=== PATIENT | male | born 1980 ===

== ENCOUNTER 2017-06-27 17:07 | Inpatient (IN) | payer OTHER ==
[2017-06-27] MEDS ORDERED: Sodium Chloride 0.9% 1,000 ML IV ONE (17:58)
--- NOTE | 2017-06-27 17:58 | C.PDOC ---
History Of Present Illness 36 y/o male presents to ED with complaints of fever intermittently for 3 weeks with associated rigors and cough. Patient also complaints of new onset upper back pain for 3 weeks. Patient reports he lefts a lot at work and states pain is worse during rigors worse with movement. Patient denies trauma, weakness, numbness, chest pain, shortness of breath, dyspnea on exertion, recent travel, sick contacts or any other complaints at this time. FEVER X 3 WEEKS. INTERMIT, +RIGORS +COUGH. NO CP, SOB, FLORES. DENIES TRAVEL, SICK CONTACTS. ALSO W NEW ONSET LOWER AND UPPER BACK PAIN X 3 WEEKS. PS LIFTS ALOT AT WORK. PAIN WORSE DURING RIGORS. WORSE W MOVEMENT. NO TRAUMA, ASSOC WEAK/NUMB EXAM NAD NONTOXIC HEENT NEG LUNGS CTA B/L NO W/R/R BACK NEG REMAINDER NEG Time Seen by Provider: 06/27/17 17:46 Chief Complaint (Nursing): Flu-like Symptoms History Per: Patient History/Exam Limitations: no limitations Onset/Duration Of Symptoms: Days Current Symptoms Are (Timing): Still Present Associated Symptoms: Fever, Cough Past Medical History Reviewed: Historical Data, Nursing Documentation, Vital Signs Vital Signs: Last Vital Signs Temp 102.8 F H 06/27/17 17:17 Pulse 117 H 06/27/17 17:17 Resp 18 06/27/17 17:17 BP 125/84 06/27/17 17:17 Pulse Ox 99 06/27/17 18:10 - Medical History PMH: No Chronic Diseases Surgical History: No Surg Hx Family History: States: No Known Family Hx - Social History Hx Alcohol Use: No Hx Substance Use: No - Immunization History Hx Tetanus Toxoid Vaccination: No Hx Influenza Vaccination: No Hx Pneumococcal Vaccination: No Review Of Systems Constitutional: Positive for: Fever. Negative for: Chills Respiratory: Positive for: Cough. Negative for: Shortness of Breath Gastrointestinal: Negative for: Nausea, Vomiting Musculoskeletal: Positive for: Back Pain Skin: Negative for: Rash Physical Exam - Physical Exam Appears: Non-toxic, No Acute Distress Skin: Warm, Dry, No Rash Head: Atraumatic, Normacephalic Eye(s): bilateral: Normal Inspection, PERRL, EOMI Ear(s): Bilateral: Normal Oral Mucosa: Moist Throat: Normal, No Erythema, No Exudate Neck: Supple Cardiovascular: Rhythm Regular Respiratory: Normal Breath Sounds, No Rales, No Rhonchi, No Wheezing, Other ( CTA bilateral) Gastrointestinal/Abdominal: Soft, No Tenderness, No Guarding, No Rebound Back: No CVA Tenderness, No Muscle Spasm, No Paraspinal Tenderness Extremity: Normal ROM, Capillary Refill (<2 seconds) Neurological/Psych: Oriented x3, Normal Motor, Normal Sensation ED Course And Treatment O2 Sat by Pulse Oximetry: 99 (RA) Pulse Ox Interpretation: Normal - Other Rad CXR X-Ray: Interpreted by Me, Viewed By Me Interpretation: Opacification in left upper lobe, No prior for comparison Disposition - Disposition Disposition Time: 19:00 Condition: STABLE Forms: [facility] (Algerian) - Clinical Impression Clinical Impression: Fever - Scribe Statement The provider has reviewed the documentation as recorded by the Scribfelice Thomas All medical record entries made by the Scribe were at my direction and personally dictated by me. I have reviewed the chart and agree that the record accurately reflects my personal performance of the history, physical exam, medical decision making, and the department course for this patient. I have also personally directed, reviewed, and agree with the discharge instructions and disposition. Physician Patient Turnover Patient Signed Over To: Juan Nunes Handoff Comments: MAXIMO CT, DISPO
[2017-06-27] MEDS ORDERED: cefTRIAXone IV 1 gm in Dextros 50 ML IV STA (18:16)
[2017-06-27] MEDS ORDERED: Azithromycin 500 MG in Sodium Chloride 0.9% 250 ML IV STA (18:16)
[2017-06-27 18:53] LABS: VENOUS BLOOD GAS BASE EXCESS 2.2 mmol/L (0.0-2.0); VENOUS BLOOD GAS PCO2 46 mmHg (40-60); VENOUS BLOOD PH 7.39 (7.32-7.43)
[2017-06-27 18:54] LABS: BASO # 0.1 K/uL (0.0-0.2); EOS # 0.3 K/uL (0.0-0.7); EOS % 2.9 % (0.0-4.0); HEMATOCRIT 44.8 % (35.0-51.0); LYMPH % 17.4 % (20.0-40.0); MEAN CORPUSCULAR HEMOGLOBIN 30.3 pg (27.0-31.0); MEAN CORPUSCULAR HGB CONC 33.3 g/dL (33.0-37.0); MEAN PLATELET VOLUME 7.2 fL (7.2-11.7); MONO # 0.7 K/uL (0.0-0.8); MONO % 6.3 % (0.0-10.0); RED CELL DISTRIBUTION WIDTH 12.9 % (11.5-14.5); WHITE BLOOD COUNT 11.3 K/uL (4.8-10.8)
[2017-06-27 19:06] LABS: RBC URINE 10 /hpf (0-3); URINE BILIRUBIN NEGATIVE (NEGATIVE); URINE BLOOD 2+ (NEGATIVE); URINE COLOR Yellow (YELLOW); URINE GLUCOSE (UA) NORMAL (Normal); URINE KETONE NEGATIVE (NEGATIVE); URINE LEUKOCYTE ESTERASE NEG Leu/uL (Negative); URINE PROTEIN NEGATIVE (NEGATIVE); URINE UROBILINOGEN NORMAL mg/dL (0.2-1.0); WBC URINE 1 /hpf (0-5)
[2017-06-27] MEDS ORDERED: cefTRIAXone IV 1 gm in Dextros 50 ML IVPB ONE (19:07)
[2017-06-27 19:09] LABS: ALKALINE PHOSPHATASE 114 U/L (38-126); ALT/SGPT 57 U/L (21-72); AST/SGOT 26 U/L (17-59); BILIRUBIN,TOTAL 0.4 mg/dL (0.2-1.3); BLOOD UREA NITROGEN 12 mg/dL (9-20); CALCIUM 8.6 mg/dl (8.6-10.4); CARBON DIOXIDE 28 mmol/L (22-30); CHLORIDE 99 mmol/L (98-107); GFR AFRICAN-AMERICAN > 60; GLUCOSE,RANDOM 91 mg/dL (75-110); POTASSIUM 3.7 mmol/L (3.6-5.2); SODIUM 137 mmol/L (132-148); TOTAL PROTEIN 8.3 g/dL (6.3-8.3)
[2017-06-27 19:12] LABS: ALB/GLOB RATIO 0.9 (1.0-2.1)
[2017-06-27] MEDS ORDERED: Iodixanol 320 MG/ML 100 ML BOTTLE IV ONE (19:25)
[2017-06-27] MEDS ORDERED: metroNIDAZOLE IV 500 mg/100 ml 500 MG/100 ML BAG IVPB STA (20:29)
--- NOTE | 2017-06-27 20:37 | CP.PCM.HP ---
<HareshBriana EstuardoJaren - Last Filed: 06/27/17 23:14> History of Present Illness - History of Present Illness History of Present Illness: CC: "fever and back pain" HPI: 36 year old male with no past medical history presents to the ED with fever and thoracic back pain. Patient states the fever and pain comes and goes for the past 3 weeks. He has been taking different medications his friends give him from the pharmacy and it helps with the fever and pain but then it returns. He states the pain is aching and he also has body aches and fever for the past 3 weeks. He states the pain when it comes is at an 8/10. He also has been nauseated recently with what feels like a bad taste in his mouth. He also states he has been coughing a dry cough but this past week it has had some blood in his cough. He has also recently had decreased appetite as he is going through a divorce and has lost about 20 lbs in the past 4 months. He denies recent travel, sick contacts, diarrhea, constipation, vomiting or dysuria. States he has not left the country in many years but he does work with many different people from different parts of the world. Medical History: Denies Surgical History: Denies Medications: Denies Allergies: NKDA Family History: Denies Social History: Recent divorce within the last 4 months; works delivering furniture; denies any recent travel or sick contacts but states he works with people from all over the world/country. Denies smoking or illicit drug use. States he drink a beer once a week. Present on Admission - Present on Admission Any Indicators Present on Admission: No Review of Systems - Constitutional Constitutional: Chills, Fever, Weight Loss. absent: Headache - EENT Eyes: absent: Blurred Vision, Change in Vision Ears: absent: Dizziness Nose/Mouth/Throat: absent: Sore Throat - Cardiovascular Cardiovascular: absent: Chest Pain, Dyspnea, Palpitations - Respiratory Respiratory: Cough, Change in Mucous Color (blood ). absent: Dyspnea - Gastrointestinal Gastrointestinal: Nausea. absent: Constipation, Diarrhea, Vomiting - Genitourinary Genitourinary: absent: Dysuria, Hematuria - Musculoskeletal Musculoskeletal: Back Pain, Muscle Weakness. absent: Numbness, Tingling - Neurological Neurological: absent: Dizziness, Headaches, Tingling, Weakness - Endocrine Endocrine: Fatigue. absent: Palpitations Past Patient History - Infectious Disease Hx of Infectious Diseases: None - Past Social History Smoking Status: Never Smoked - PSYCHIATRIC Hx Substance Use: No - SURGICAL HISTORY Hx Surgeries: No - ANESTHESIA Hx Anesthesia: No Meds Allergies/Adverse Reactions: Allergies Allergy/AdvReac Type Severity Reaction Status Date / Time No Known Allergies Allergy Verified 06/27/17 17:21 Physical Exam - Constitutional Appears: No Acute Distress - Head Exam Head Exam: ATRAUMATIC, NORMAL INSPECTION - Eye Exam Eye Exam: EOMI, Normal appearance - ENT Exam ENT Exam: Mucous Membranes Moist - Respiratory Exam Respiratory Exam: Decreased Breath Sounds (right lower lung), NORMAL BREATHING PATTERN. absent: Rales, Rhonchi, Wheezes, Stridor - Cardiovascular Exam Cardiovascular Exam: Tachycardia, REGULAR RHYTHM, +S1, +S2 - GI/Abdominal Exam GI & Abdominal Exam: Normal Bowel Sounds, Soft. absent: Tenderness - Extremities Exam Extremities exam: Positive for: normal inspection. Negative for: pedal edema, tenderness - Back Exam Back exam: rash noted (light macular papular rash). absent: paraspinal tenderness, tenderness, vertebral tenderness - Neurological Exam Neurological exam: Alert, CN II-XII Intact, Oriented x3 - Skin Skin Exam: Dry, Intact, Rash, Warm Results - Vital Signs Recent Vital Signs: Last Vital Signs Temp 102.8 F H 06/27/17 17:17 Pulse 117 H 06/27/17 17:17 Resp 18 06/27/17 17:17 BP 125/84 06/27/17 17:17 Pulse Ox 99 06/27/17 18:52 - Labs Result Diagrams: 06/27/17 18:51 06/27/17 18:51 Labs: Laboratory Results - last 24 hr 06/27/17 06/27/17 06/27/17 18:45 18:50 18:51 WBC RBC Hgb Hct MCV MCH MCHC RDW Plt Count MPV Neut % (Auto) Lymph % (Auto) Gallia % (Auto) Eos % (Auto) Baso % (Auto) Neut # Lymph # Gallia # Eos # Baso # pO2 30 VBG pH 7.39 VBG pCO2 46 VBG HCO3 25.5 VBG Total CO2 29.2 H VBG O2 Sat (Calc) 69.2 H VBG Base Excess 2.2 H VBG Potassium 3.7 Sodium 138.0 137 Chloride 104.0 99 Glucose 102 Lactate 1.3 Potassium 3.7 Carbon Dioxide 28 Anion Gap 14 BUN 12 Creatinine 0.9 Est GFR ( Amer) > 60 Est GFR (Non-Af Amer) > 60 Random Glucose 91 Calcium 8.6 Total Bilirubin 0.4 AST 26 ALT 57 Alkaline Phosphatase 114 Total Protein 8.3 Albumin 4.0 Globulin 4.3 H Albumin/Globulin Ratio 0.9 L Venous Blood Potassium 3.7 Urine Color Urine Clarity Urine pH Ur Specific Newman Urine Protein Urine Glucose (UA) Urine Ketones Urine Blood Urine Nitrate Urine Bilirubin Urine Urobilinogen Ur Leukocyte Esterase Urine WBC (Auto) Urine RBC (Auto) Influenza Typ A,B (EIA) Negative for flu a/b 06/27/17 06/27/17 18:51 18:51 WBC 11.3 H RBC 4.93 Hgb 14.9 Hct 44.8 MCV 91.0 MCH 30.3 MCHC 33.3 RDW 12.9 Plt Count 487 H MPV 7.2 Neut % (Auto) 72.4 Lymph % (Auto) 17.4 L Gallia % (Auto) 6.3 Eos % (Auto) 2.9 Baso % (Auto) 1.0 Neut # 8.1 H Lymph # 2.0 Gallia # 0.7 Eos # 0.3 Baso # 0.1 pO2 VBG pH VBG pCO2 VBG HCO3 VBG Total CO2 VBG O2 Sat (Calc) VBG Base Excess VBG Potassium Sodium Chloride Glucose Lactate Potassium Carbon Dioxide Anion Gap BUN Creatinine Est GFR ( Amer) Est GFR (Non-Af Amer) Random Glucose Calcium Total Bilirubin AST ALT Alkaline Phosphatase Total Protein Albumin Globulin Albumin/Globulin Ratio Venous Blood Potassium Urine Color Yellow Urine Clarity Clear Urine pH 5.0 Ur Specific Newman 1.025 Urine Protein Negative Urine Glucose (UA) Normal Urine Ketones Negative Urine Blood 2+ H Urine Nitrate Negative Urine Bilirubin Negative Urine Urobilinogen Normal Ur Leukocyte Esterase Neg Urine WBC (Auto) 1 Urine RBC (Auto) 10 H Influenza Typ A,B (EIA) Assessment & Plan - Assessment and Plan (Free Text) Assessment: 1.) Fever and Thoracic Back Pain - possibly secondary to TB vs. Pneumonia vs. Lung abscess - ID Consult: Dr. Haque --> help appreciated - f/u Chest x-ray - f/u Chest CT Spoke with Dr. Haque and told not to start TB medications yet until receive all blood work, lung readings, and sputum cultures - Vancomycin 1g q24h - Azythromycin 500mg q24h - Zosyn 3.375g q6h - f/u sputum culture, acid fast, urine culture, Legionella, mycoplasm 2.) Prophylaxis - Heparin SC - Pepcid 20mg PO daily - SCDs - Isolation Case discussed with Dr. Malathi Hutson PGY-1 <Paco Servin - Last Filed: 06/28/17 06:11> Results - Vital Signs Recent Vital Signs: Last Vital Signs Temp 99 F 06/28/17 04:00 Pulse 79 06/28/17 04:00 Resp 18 06/28/17 04:00 BP 127/79 06/28/17 04:00 Pulse Ox 97 06/28/17 04:00 - Labs Result Diagrams: 06/27/17 18:51 06/27/17 18:51 Labs: Laboratory Results - last 24 hr 06/27/17 06/27/17 06/27/17 18:45 18:50 18:51 WBC RBC Hgb Hct MCV MCH MCHC RDW Plt Count MPV Neut % (Auto) Lymph % (Auto) Gallia % (Auto) Eos % (Auto) Baso % (Auto) Neut # Lymph # Gallia # Eos # Baso # pO2 30 VBG pH 7.39 VBG pCO2 46 VBG HCO3 25.5 VBG Total CO2 29.2 H VBG O2 Sat (Calc) 69.2 H VBG Base Excess 2.2 H VBG Potassium 3.7 Sodium 138.0 137 Chloride 104.0 99 Glucose 102 Lactate 1.3 Potassium 3.7 Carbon Dioxide 28 Anion Gap 14 BUN 12 Creatinine 0.9 Est GFR ( Amer) > 60 Est GFR (Non-Af Amer) > 60 Random Glucose 91 Calcium 8.6 Total Bilirubin 0.4 AST 26 ALT 57 Alkaline Phosphatase 114 Total Protein 8.3 Albumin 4.0 Globulin 4.3 H Albumin/Globulin Ratio 0.9 L Procalcitonin Venous Blood Potassium 3.7 Urine Color Urine Clarity Urine pH Ur Specific Newman Urine Protein Urine Glucose (UA) Urine Ketones Urine Blood Urine Nitrate Urine Bilirubin Urine Urobilinogen Ur Leukocyte Esterase Urine WBC (Auto) Urine RBC (Auto) HIV 1&2 Antibody Screen Influenza Typ A,B (EIA) Negative for flu a/b 06/27/17 06/27/17 06/27/17 18:51 18:51 21:23 WBC 11.3 H RBC 4.93 Hgb 14.9 Hct 44.8 MCV 91.0 MCH 30.3 MCHC 33.3 RDW 12.9 Plt Count 487 H MPV 7.2 Neut % (Auto) 72.4 Lymph % (Auto) 17.4 L Gallia % (Auto) 6.3 Eos % (Auto) 2.9 Baso % (Auto) 1.0 Neut # 8.1 H Lymph # 2.0 Gallia # 0.7 Eos # 0.3 Baso # 0.1 pO2 VBG pH VBG pCO2 VBG HCO3 VBG Total CO2 VBG O2 Sat (Calc) VBG Base Excess VBG Potassium Sodium Chloride Glucose Lactate Potassium Carbon Dioxide Anion Gap BUN Creatinine Est GFR ( Amer) Est GFR (Non-Af Amer) Random Glucose Calcium Total Bilirubin AST ALT Alkaline Phosphatase Total Protein Albumin Globulin Albumin/Globulin Ratio Procalcitonin 0.08 L Venous Blood Potassium Urine Color Yellow Urine Clarity Clear Urine pH 5.0 Ur Specific Newman 1.025 Urine Protein Negative Urine Glucose (UA) Normal Urine Ketones Negative Urine Blood 2+ H Urine Nitrate Negative Urine Bilirubin Negative Urine Urobilinogen Normal Ur Leukocyte Esterase Neg Urine WBC (Auto) 1 Urine RBC (Auto) 10 H HIV 1&2 Antibody Screen Influenza Typ A,B (EIA) 06/27/17 21:49 WBC RBC Hgb Hct MCV MCH MCHC RDW Plt Count MPV Neut % (Auto) Lymph % (Auto) Gallia % (Auto) Eos % (Auto) Baso % (Auto) Neut # Lymph # Gallia # Eos # Baso # pO2 VBG pH VBG pCO2 VBG HCO3 VBG Total CO2 VBG O2 Sat (Calc) VBG Base Excess VBG Potassium Sodium Chloride Glucose Lactate Potassium Carbon Dioxide Anion Gap BUN Creatinine Est GFR ( Amer) Est GFR (Non-Af Amer) Random Glucose Calcium Total Bilirubin AST ALT Alkaline Phosphatase Total Protein Albumin Globulin Albumin/Globulin Ratio Procalcitonin Venous Blood Potassium Urine Color Urine Clarity Urine pH Ur Specific Newman Urine Protein Urine Glucose (UA) Urine Ketones Urine Blood Urine Nitrate Urine Bilirubin Urine Urobilinogen Ur Leukocyte Esterase Urine WBC (Auto) Urine RBC (Auto) HIV 1&2 Antibody Screen Negative Influenza Typ A,B (EIA) Assessment & Plan - Date & Time Date: 06/28/17 (I have seen and examined the patient. I agree with the findings and plan of care as documented by Dr. Hutson. Patient with lung abscess and pneumonia. Positive for SIRS. Check procalcitonin. Lactate negative. Check sputum and blood cultures. Consult to ID. On Vanco, Azithro, and Zosyn. Monitor for acute changes.) Time: 06:10 Attending/Attestation - Attestation I have personally seen and examined this patient.: Yes I have fully participated in the care of the patient.: Yes I have reviewed all pertinent clinical information: Yes
[2017-06-27] MEDS ORDERED: metroNIDAZOLE IV 500 mg/100 ml 500 MG/100 ML BAG ONE (21:15)
[2017-06-27] MEDS: Vancomycin 1 gm/NS 200 ml 1 GM/200 ML BAG IVPB SCH (23:39)
[2017-06-28] MEDS: Piperacill/Tazo 3.375gm in Dex 3.375 GM/50 ML BAG IVPB SCH ×4 (01:14→19:27)
[2017-06-28 08:20] LABS: BASO # 0.1 K/uL (0.0-0.2); BASO % 0.7 % (0.0-2.0); EOS # 0.2 K/uL (0.0-0.7); EOS % 2.2 % (0.0-4.0); HEMATOCRIT 42.3 % (35.0-51.0); LYMPH # 1.3 K/uL (1.0-4.3); LYMPH % 11.4 % (20.0-40.0); MEAN CELL VOLUME 90.7 fL (80.0-94.0); MEAN CORPUSCULAR HEMOGLOBIN 31.1 pg (27.0-31.0); MEAN CORPUSCULAR HGB CONC 34.3 g/dL (33.0-37.0); MEAN PLATELET VOLUME 7.3 fL (7.2-11.7); MONO # 0.8 K/uL (0.0-0.8); MONO % 7.3 % (0.0-10.0)
[2017-06-28 08:47] LABS: ALB/GLOB RATIO 1.2 (1.0-2.1); ALKALINE PHOSPHATASE 107 U/L (38-126); ALT/SGPT 45 U/L (21-72); AST/SGOT 30 U/L (17-59); BILIRUBIN,TOTAL 0.7 mg/dL (0.2-1.3); BLOOD UREA NITROGEN 10 mg/dL (9-20); CALCIUM 8.5 mg/dl (8.6-10.4); CARBON DIOXIDE 25 mmol/L (22-30); CHLORIDE 99 mmol/L (98-107); GFR AFRICAN-AMERICAN > 60; GLUCOSE,RANDOM 87 mg/dL (75-110); MAGNESIUM 1.9 mg/dL (1.6-2.3); PHOSPHOROUS 2.8 mg/dL (2.5-4.5); POTASSIUM 3.8 mmol/L (3.6-5.2); SODIUM 134 mmol/L (132-148); TOTAL PROTEIN 6.7 g/dL (6.3-8.3)
--- NOTE | 2017-06-28 13:14 | RAD ---
HISTORY: SOB COMPARISON: No prior. TECHNIQUE: Chest PA and lateral FINDINGS: LUNGS: Left upper lobe infiltrate consistent with pneumonia. Minor bibasilar atelectasis. PLEURA: No significant pleural effusion identified. No pneumothorax apparent. CARDIOVASCULAR: Normal. OSSEOUS STRUCTURES: No significant abnormalities. VISUALIZED UPPER ABDOMEN: Normal. OTHER FINDINGS: None. IMPRESSION: Left upper lobe infiltrate consistent with pneumonia. . Minor bibasilar atelectasis
--- NOTE | 2017-06-28 17:42 | CT ---
PROCEDURE: CT Chest with contrast HISTORY: fever abn cxr COMPARISON: Comparison made with chest x-ray 06/27/2017. TECHNIQUE: Contiguous axial images were obtained through the chest with intravenous contrast enhancement. Sagittal and coronal reconstructions were performed. IV contrast: 100 cc of Visipaque 320 contrast material. Radiation dose (DLP): 562.22 mGy-cm. This CT exam was performed using one or more of the following dose reduction techniques: Automated exposure control, adjustment of the mA and/or kV according to patient size, and/or use of iterative reconstruction technique. FINDINGS: LUNGS: Current study reveals masslike area of consolidation left upper lobe. With a somewhat central elliptical shaped area of low-attenuation (measuring approximately 2.2 x 1 point of 5 5 cm) and a bubble of air consistent with abscess. Follow-up CT scan following treatment recommended to assess resolution and exclude an underlying mass with central necrosis. . MEDIASTINUM: Unremarkable thoracic aorta. No aneurysm or dissection. Heart is mildly enlarged Main pulmonary artery unremarkable No vascular congestion. No significant lymphadenopathy PLEURA: No pleural fluid. No pneumothorax. BONES: Mild degenerative spondylosis of the thoracic spine. UPPER ABDOMEN: Grossly unremarkable. OTHER FINDINGS: None. IMPRESSION: Masslike consolidation left upper lobe with the small central a elliptical shaped area of low attenuation and at tiny bubble of air consistent with pneumonia and at central abscess formation. . Follow-up CT scan following treatment to assess resolution and exclude underlying mass with central necrosis. Preliminary report provided by overnight radiology service. Go go
--- NOTE | 2017-06-28 17:44 | CP.PCM.PN ---
<Lucía Washington - Last Filed: 06/28/17 20:34> Subjective - Date & Time of Evaluation Date of Evaluation: 06/28/17 Time of Evaluation: 09:30 - Subjective Subjective: Medicine Progress Note for Dr. Acevedo Patient was seen and examined at bedside in no acute distress. Patient reports feeling okay but still has a cough. He states the cough sometimes produces a white phlegm and a strange taste. Patient reports that then he feels feverish, his back becomes really hot and his legs get tense. During the exam, patient denies having these symptoms. Patient denies having chest pain, abdominal pain, shortness of breath, nausea, vomiting, and headaches. Objective - Vital Signs/Intake and Output Vital Signs (last 24 hours): Temp Pulse Resp BP Pulse Ox 100.4 F H 74 20 113/71 96 06/28/17 16:29 06/28/17 16:29 06/28/17 16:29 06/28/17 16:29 06/28/17 16:29 Intake and Output: 06/28/17 06/28/17 06:59 18:59 Intake Total 120 500 Balance 120 500 - Medications Medications: Current Medications Famotidine (Pepcid) 20 mg PO DAILY [facility] Last Admin: 06/28/17 09:39 Dose: 20 mg Heparin Sodium (Porcine) (Heparin) 5,000 units SC Q8 [facility] Last Admin: 06/28/17 13:13 Dose: 5,000 units Piperacillin Sod/Tazobactam Sod (Zosyn 3.375 Gm Iv Premix) 3.375 gm in 50 mls @ 100 mls/hr IVPB Q6H [facility] Last Admin: 06/28/17 13:13 Dose: 100 mls/hr Vancomycin/Sodium Chloride (Vancomycin 1 Gm/Ns 200 Ml) 1 gm in 200 mls @ 133.333 mls/hr IVPB Q24H [facility] Stop: 07/02/17 21:31 Last Admin: 06/27/17 23:39 Dose: 133.333 mls/hr Azithromycin 500 mg/ Sodium (Chloride) 250 mls @ 167 mls/hr IVPB Q24H [facility] Saccharomyces Boulardii (Florastor) 250 mg PO BID [facility] - Labs Labs: 06/28/17 07:54 06/28/17 07:54 - Constitutional Appears: No Acute Distress - Head Exam Head Exam: ATRAUMATIC, NORMAL INSPECTION - Eye Exam Eye Exam: EOMI, Normal appearance - ENT Exam ENT Exam: Mucous Membranes Moist - Respiratory Exam Respiratory Exam: Clear to Ausculation Bilateral, Respiratory Distress, NORMAL BREATHING PATTERN. absent: Rales, Rhonchi, Wheezes - Cardiovascular Exam Cardiovascular Exam: REGULAR RHYTHM, +S1, +S2 - GI/Abdominal Exam GI & Abdominal Exam: Soft, Normal Bowel Sounds. absent: Distended, Firm, Tenderness, Mass - Extremities Exam Extremities Exam: Normal Inspection. absent: Calf Tenderness, Pedal Edema - Neurological Exam Neurological Exam: Alert, Awake, Oriented x3 - Psychiatric Exam Psychiatric exam: Normal Affect, Normal Mood - Skin Skin Exam: Dry, Intact, Normal Color, Warm Assessment and Plan (1) Fever Assessment & Plan: Fever and Thoracic Back Pain * possibly secondary to TB vs. Pneumonia vs. Lung abscess * ID Consult: Dr. Haque --> help appreciated * TB medication on hold until results for blood work and sputum cultures * Chest xray: Left upper lobe infiltrate consistent with pneumonia; Minor bibasilar atelectasis * Chest CT: Masslike consolidation left upper lobe with the small central a elliptical shaped area of low attenuation and at tiny bubble of air consistent with pneumonia and at central abscess formation; Follow-up CT scan following treatment to assess resolution and exclude underlying mass with central necrosis. * Continue antibiotics: Vancomycin 1g q24h, Azythromycin 500mg q24h, Zosyn 3.375g q6h * monitor LFTs * Vanco trough--> order for 06/30: f/u results * Legionella, mycoplasma, influenza: negative * HIV 1/2 Ab: negative * F/u sputum culture, gram stain, acid fast, urine culture Status: Acute (2) Cough Assessment & Plan: * Started tessalon pearls * Chest xray: Left upper lobe infiltrate consistent with pneumonia; Minor bibasilar atelectasis * Chest CT: Masslike consolidation left upper lobe with the small central a elliptical shaped area of low attenuation and at tiny bubble of air consistent with pneumonia and at central abscess formation; Follow-up CT scan following treatment to assess resolution and exclude underlying mass with central necrosis. * f/u sputum culture, gram stain, acid fast, urine culture * Legionella, mycoplasm, Influenza: negative * Continue antibiotics Vancomycin 1g q24h, Azythromycin 500mg q24h, Zosyn 3.375g q6h Status: Acute (3) Prophylactic measure Assessment & Plan: - Heparin SC - Pepcid 20mg PO daily - SCDs - Isolation - Utilization Engineer referral Status: Acute <Elisabeth Acevedo V - Last Filed: 06/28/17 21:56> Objective - Vital Signs/Intake and Output Vital Signs (last 24 hours): Temp Pulse Resp BP Pulse Ox 99 F 98 H 18 112/71 96 06/28/17 19:40 06/28/17 19:35 06/28/17 19:35 06/28/17 19:35 06/28/17 16:29 Intake and Output: 06/28/17 06/29/17 18:59 06:59 Intake Total 950 350 Balance 950 350 - Medications Medications: Current Medications Acetaminophen (Tylenol 325mg Tab) 650 mg PO Q6 PRN PRN Reason: Pain, Mild (1-3) Last Admin: 06/28/17 19:40 Dose: 650 mg Benzonatate (Tessalon Perles) 100 mg PO TID [facility] Last Admin: 06/28/17 18:23 Dose: 100 mg Famotidine (Pepcid) 20 mg PO DAILY [facility] Last Admin: 06/28/17 09:39 Dose: 20 mg Heparin Sodium (Porcine) (Heparin) 5,000 units SC Q8 [facility] Last Admin: 06/28/17 13:13 Dose: 5,000 units Piperacillin Sod/Tazobactam Sod (Zosyn 3.375 Gm Iv Premix) 3.375 gm in 50 mls @ 100 mls/hr IVPB Q6H [facility] Last Admin: 06/28/17 19:27 Dose: 100 mls/hr Vancomycin/Sodium Chloride (Vancomycin 1 Gm/Ns 200 Ml) 1 gm in 200 mls @ 133.333 mls/hr IVPB Q24H [facility] Stop: 07/02/17 21:31 Last Admin: 06/28/17 21:08 Dose: 133.333 mls/hr Azithromycin 500 mg/ Sodium (Chloride) 250 mls @ 167 mls/hr IVPB Q24H [facility] Last Admin: 06/28/17 18:18 Dose: 167 mls/hr Saccharomyces Boulardii (Florastor) 250 mg PO BID [facility] Last Admin: 06/28/17 18:04 Dose: 250 mg - Labs Labs: 06/28/17 07:54 06/28/17 07:54 - Constitutional Appears: Other (diaphoretic, mild flushing) - Respiratory Exam Additional comments: decreased lung sounds over upper base unable to appreciate crackles/rales/wheezing - Extremities Exam Extremities Exam: absent: Tenderness - Skin Skin Exam: Diaphoretic, Dry, Erythema (flush over anterior chest and posterior) , Normal Color, Rash (anterior chest and posterior chest) Assessment and Plan (1) Lung abscess Assessment & Plan: * CT Chest (06/28/17): mass like consolidation left upper love with small central a elliptical shaped area of low attentuation and a tiny bubble of air consistent with pneumonia and at central abscess formation. CT Scan following treatment to assess resolution and exclude underlying mass w central necrosis. * Infectious Disease (Dr. Haque) on the case help appreciated * Azithromycin 500mg IV Q24H (active since 06/28/17) * Zosyn 3.375 IV Q6H (active since 06/28/17) * Vancomycin 1 gram IVPB 24 H (active since 06/27/17) * Florastor 250mg PO BID * Promethazine w codeine 5ml PO Q 4H * order for ESR, CRP * HIV negative * Quantiferon TB collected-->pending * Sputum culture-->pending * Mycobacterium/Acid Fast (06/27/17)-->collected * Pending 2 more consecutive AFB/Mycobacterium cultures * on Respiration isolation * Promethazine w codeine 5ml PO Q 4H PRN cough Status: Acute (2) Abnormal chest xray Assessment & Plan: left upper lobe infiltrate consistent with pnuemonia. Minor bibasilar atelectasis Status: Acute (3) Fever Assessment & Plan: Addendum: agree with above with updated information below: * CT Chest (06/28/17): mass like consolidation left upper love with small central a elliptical shaped area of low attentuation and a tiny bubble of air consistent with pneumonia and at central abscess formation. CT Scan following treatment to assess resolution and exclude underlying mass w central necrosis. * Infectious Disease (Dr. Haque) on the case help appreciated * Azithromycin 500mg IV Q24H (active since 06/28/17) * Zosyn 3.375 IV Q6H (active since 06/28/17) * Vancomycin 1 gram IVPB 24 H (active since 06/27/17) * Florastor 250mg PO BID * Promethazine w codeine 5ml PO Q 4H * order for ESR, CRP * HIV negative * Mycobacterium/Acid Fast (06/27/17)-->collected * Pending 2 more consecutive AFB/Mycobacterium cultures * on Respiration isolation * Promethazine w codeine 5ml PO Q 4H PRN cough * Tylenol 650mg PO Q 6H PRN Fever (T>100.4F) * Blood culture (06/27): pending * Urine Culture (06/27): pending * Legionella culture (06/27): pending * Sputum culture and mycobacterium/acid fast * Quantiferon TB collected-->pending * Tmax: 102.8F (on admission) * procalcitonin: 0.08 Status: Acute (4) Secondhand smoke exposure Assessment & Plan: patient's apartment mate smokes; patient is exposed to it; discussed with patient that exposure will increase his risk for things like lung cancer Status: Acute (5) At risk for tuberculosis Assessment & Plan: Respiratory isolation Pending Sputum for AFBs/Mycobacterium X3 HIV: negative Quanterfon: pending Tobacco exposure Patient has not be incarcerated Patient has not been on immunosuppressant therapy 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 Patient is diaphoretic, flushing but speaking comfortably at bedside. Patient reports he keeps tasting awful substance in his cough. Patient reports he did cough up blood. Patient denies exposure to tuberculosis, confirms exposure to secondhand smoke, negative for HIV, on respiratory isolation as prophylactic for tuberculosis. Patient is currently on 3 IV abx. Patient has pending mycobacterium and sputum cultures. Chest CT official report noting for possible abscess. Supportive care for cough including promethazine w codeine. Continue to monitor fevers and blood and urine cultures.
[2017-06-28] MEDS: Saccharomyces Boulardi 250 mg Cap PO SCH (18:04)
[2017-06-28] MEDS: Azithromycin 500 MG in Sodium Chloride 0.9% 250 ML IVPB SCH (18:18)
[2017-06-28] MEDS: Vancomycin 1 gm/NS 200 ml 1 GM/200 ML BAG IVPB SCH (21:08)
[2017-06-28] MEDS ORDERED: Promethazine/Cod 6.25mg-10mg/5ml Syr UD PO PRN (21:25)
[2017-06-29] MEDS: Piperacill/Tazo 3.375gm in Dex 3.375 GM/50 ML BAG IVPB SCH ×4 (01:02→20:11)
[2017-06-29 07:38] LABS: BASO % 0.5 % (0.0-2.0); EOS # 0.2 K/uL (0.0-0.7); EOS % 2.3 % (0.0-4.0); HEMATOCRIT 42.8 % (35.0-51.0); LYMPH # 1.2 K/uL (1.0-4.3); LYMPH % 13.1 % (20.0-40.0); MEAN CELL VOLUME 90.7 fL (80.0-94.0); MEAN CORPUSCULAR HEMOGLOBIN 32.1 pg (27.0-31.0); MEAN CORPUSCULAR HGB CONC 35.4 g/dL (33.0-37.0); MEAN PLATELET VOLUME 7.2 fL (7.2-11.7); MONO # 0.7 K/uL (0.0-0.8); MONO % 7.8 % (0.0-10.0); NRBC % 0.1 % (0.0-2.0); RED CELL DISTRIBUTION WIDTH 12.8 % (11.5-14.5); WHITE BLOOD COUNT 9.3 K/uL (4.8-10.8)
[2017-06-29 08:38] LABS: ALB/GLOB RATIO 0.9 (1.0-2.1); ALKALINE PHOSPHATASE 113 U/L (38-126); ALT/SGPT 49 U/L (21-72); AST/SGOT 25 U/L (17-59); BILIRUBIN,TOTAL 0.4 mg/dL (0.2-1.3); BLOOD UREA NITROGEN 10 mg/dL (9-20); CALCIUM 8.9 mg/dl (8.6-10.4); CARBON DIOXIDE 26 mmol/L (22-30); CHLORIDE 99 mmol/L (98-107); GFR AFRICAN-AMERICAN > 60; GLUCOSE,RANDOM 106 mg/dL (75-110); MAGNESIUM 2.1 mg/dL (1.6-2.3); PHOSPHOROUS 3.7 mg/dL (2.5-4.5); SODIUM 136 mmol/L (132-148); TOTAL PROTEIN 7.7 g/dL (6.3-8.3)
[2017-06-29] MEDS: Saccharomyces Boulardi 250 mg Cap PO SCH ×2 (09:26→18:02)
--- NOTE | 2017-06-29 09:41 | CP.PCM.PN ---
<Briana Hutson - Last Filed: 06/29/17 17:07> Subjective - Date & Time of Evaluation Date of Evaluation: 06/29/17 Time of Evaluation: 07:00 - Subjective Subjective: Patient was seen and examined at bedside in the AM. Patient denies fever or body aches since being admitted in the hospital. Patient states he is originally from [facility] and has been in the [facility] for 16 years. He states he has not left the country. He is not sure if he received the BCG vaccine as a child. Patient denies shortness of breath, difficulty breathing, chest pain, nausea, vomiting, diarrhea or constipation. Objective - Vital Signs/Intake and Output Vital Signs (last 24 hours): Temp Pulse Resp BP Pulse Ox 98.8 F 89 20 111/70 96 06/29/17 08:28 06/29/17 08:28 06/29/17 08:28 06/29/17 08:28 06/29/17 08:28 Intake and Output: 06/29/17 06/29/17 06:59 18:59 Intake Total 520 450 Balance 520 450 - Medications Medications: Current Medications Acetaminophen (Tylenol 325mg Tab) 650 mg PO Q6 PRN PRN Reason: Fever >100.4 F Famotidine (Pepcid) 20 mg PO DAILY [facility] Last Admin: 06/29/17 09:26 Dose: 20 mg Heparin Sodium (Porcine) (Heparin) 5,000 units SC Q8 [facility] Last Admin: 06/29/17 06:31 Dose: 5,000 units Piperacillin Sod/Tazobactam Sod (Zosyn 3.375 Gm Iv Premix) 3.375 gm in 50 mls @ 100 mls/hr IVPB Q6H [facility] Last Admin: 06/29/17 08:24 Dose: 100 mls/hr Vancomycin/Sodium Chloride (Vancomycin 1 Gm/Ns 200 Ml) 1 gm in 200 mls @ 133.333 mls/hr IVPB Q24H [facility] Stop: 07/02/17 21:31 Last Admin: 06/28/17 21:08 Dose: 133.333 mls/hr Azithromycin 500 mg/ Sodium (Chloride) 250 mls @ 167 mls/hr IVPB Q24H [facility] Last Admin: 06/28/17 18:18 Dose: 167 mls/hr Promethazine HCl/Codeine (Phenergan/Codeine Oral Syrup) 5 ml PO Q4 PRN PRN Reason: Cough Last Admin: 06/29/17 00:55 Dose: 5 ml Saccharomyces Boulardii (Florastor) 250 mg PO BID [facility] Last Admin: 06/29/17 09:26 Dose: 250 mg - Labs Labs: 06/29/17 07:11 06/29/17 07:11 - Constitutional Appears: No Acute Distress - Head Exam Head Exam: ATRAUMATIC, NORMAL INSPECTION - Eye Exam Eye Exam: EOMI, Normal appearance - ENT Exam ENT Exam: Mucous Membranes Moist - Respiratory Exam Respiratory Exam: Decreased Breath Sounds (bilateral lower lungs), NORMAL BREATHING PATTERN - Cardiovascular Exam Cardiovascular Exam: REGULAR RHYTHM, RRR, +S1, +S2 - GI/Abdominal Exam GI & Abdominal Exam: Soft, Normal Bowel Sounds. absent: Tenderness - Extremities Exam Extremities Exam: Normal Inspection - Neurological Exam Neurological Exam: Alert, Awake, Oriented x3 - Psychiatric Exam Psychiatric exam: Normal Affect, Normal Mood - Skin Skin Exam: Dry, Intact, Normal Color, Warm Assessment and Plan - Assessment and Plan (Free Text) Assessment: 1.) Fever and Thoracic Back Pain - possibly secondary to TB vs. Pneumonia vs. Lung abscess - ID Consult: Dr. Haque --> help appreciated - Chest x-ray: Left upper lobe infiltrate consistent with pneumonia; Minor bibasilar atelectasis - Chest CT: Mass like consolidation left upper lobe with the small central a elliptical shaped area of low attenuation and at tiny bubble of air consistent with pneumonia and at central abscess formation; Follow-up CT scan following treatment to assess resolution and exclude underlying mass with central necrosis. Spoke with Dr. Haque and told not to start TB medications yet until receive all blood work, lung readings, and sputum cultures Medications: * Vancomycin 1g q24h * Azythromycin 500mg q24h * Zosyn 3.375g q6h * Acetaminophen 650mg PO Q6h prn * Florastor 250mg PO BID * Acetylcystein 4ml INH RQD * Duoneb - f/u sputum culture, acid fast - Blood culture and Urine Culture: Negative - Legionella, mycoplasm, Influenza: negative - HIV negative - f/u Hepatitis Panel - f/u Quantiferon gold and PPD 2.) Prophylaxis - Heparin SC - Pepcid 20mg PO daily - SCDs - Isolation Case discussed with Dr. Anson Hutson PGY-1 <Davis Griggs - Last Filed: 06/29/17 19:46> Objective - Vital Signs/Intake and Output Vital Signs (last 24 hours): Temp Pulse Resp BP Pulse Ox 98.3 F 86 20 123/78 96 06/29/17 15:41 06/29/17 15:41 06/29/17 15:41 06/29/17 15:41 06/29/17 15:41 Intake and Output: 06/29/17 06/30/17 18:59 06:59 Intake Total 700 Balance 700 - Medications Medications: Current Medications Acetaminophen (Tylenol 325mg Tab) 650 mg PO Q6 PRN PRN Reason: Fever >100.4 F Acetylcysteine (Acetylcysteine 20%) 4 ml INH RQD [facility] Albuterol/Ipratropium (Duoneb 3 Mg/0.5 Mg (3 Ml) Ud) 3 ml INH RQD [facility] Last Admin: 06/29/17 16:47 Dose: 3 ml Famotidine (Pepcid) 20 mg PO DAILY [facility] Last Admin: 06/29/17 09:26 Dose: 20 mg Heparin Sodium (Porcine) (Heparin) 5,000 units SC Q8 [facility] Last Admin: 06/29/17 13:04 Dose: 5,000 units Piperacillin Sod/Tazobactam Sod (Zosyn 3.375 Gm Iv Premix) 3.375 gm in 50 mls @ 100 mls/hr IVPB Q6H [facility] Last Admin: 06/29/17 13:05 Dose: 100 mls/hr Vancomycin/Sodium Chloride (Vancomycin 1 Gm/Ns 200 Ml) 1 gm in 200 mls @ 133.333 mls/hr IVPB Q24H [facility] Stop: 07/02/17 21:31 Last Admin: 06/28/17 21:08 Dose: 133.333 mls/hr Azithromycin 500 mg/ Sodium (Chloride) 250 mls @ 167 mls/hr IVPB Q24H [facility] Last Admin: 06/29/17 17:59 Dose: 167 mls/hr Saccharomyces Boulardii (Florastor) 250 mg PO BID [facility] Last Admin: 06/29/17 18:02 Dose: 250 mg - Labs Labs: 06/29/17 07:11 06/29/17 07:11 Attending/Attestation - Attestation I have personally seen and examined this patient.: Yes I have fully participated in the care of the patient.: Yes I have reviewed all pertinent clinical information, including history, physical exam and plan: Yes Notes (Text): 06/29/17 19:46 Patient was see and examined at 6 PM 06/29/[id number] Haque Exam, Assessment and Plan were thoroughly gone over with the resident. Davis Griggs D.O.
[2017-06-29] MEDS ORDERED: Tuberculin 5 Units/0.1 ml Inj ID STA (16:00)
[2017-06-29] MEDS ORDERED: Acetylcysteine 20% Inhal Soln (4ml) INH SCH (16:15)
[2017-06-29] MEDS ORDERED: Acetylcysteine 20% Inhal Soln (4ml) ONE (16:24)
[2017-06-29] MEDS: Albuterol-Ipratrop 3 mg / 0.5 (3 ml) UD INH SCH (16:47)
[2017-06-29] MEDS: Azithromycin 500 MG in Sodium Chloride 0.9% 250 ML IVPB SCH (17:59)
[2017-06-29] MEDS: Vancomycin 1 gm/NS 200 ml 1 GM/200 ML BAG IVPB SCH (21:07)
--- NOTE | 2017-06-29 22:01 | CP.PCM.CON ---
History of Present Illness - History of Present Illness History of Present Illness: dictated Past Patient History - Infectious Disease Hx of Infectious Diseases: None - Past Medical History & Family History Past Medical History?: Yes - Past Social History Smoking Status: Never Smoked - CARDIAC Hx Cardiac Disorders: No - PULMONARY Hx Asthma: Yes - NEUROLOGICAL Hx Neurological Disorder: No - HEENT Hx HEENT Problems: No - RENAL Hx Chronic Kidney Disease: No - ENDOCRINE/METABOLIC Hx Endocrine Disorders: No - HEMATOLOGICAL/ONCOLOGICAL Hx Blood Disorders: No - INTEGUMENTARY Hx Dermatological Problems: No - MUSCULOSKELETAL/RHEUMATOLOGICAL Hx Falls: No - GASTROINTESTINAL Hx Gastrointestinal Disorders: No - GENITOURINARY/GYNECOLOGICAL Hx Genitourinary Disorders: No - PSYCHIATRIC Hx Substance Use: No - SURGICAL HISTORY Other/Comment: Dental Work - ANESTHESIA Hx Anesthesia: Yes Hx Anesthesia Reactions: No Hx Malignant Hyperthermia: No Has any member of the family had a problem w/ anesthesia?: No Meds Allergies/Adverse Reactions: Allergies Allergy/AdvReac Type Severity Reaction Status Date / Time No Known Allergies Allergy Verified 06/27/17 17:21 - Medications Medications: Current Medications Acetaminophen (Tylenol 325mg Tab) 650 mg PO Q6 PRN PRN Reason: Fever >100.4 F Acetylcysteine (Acetylcysteine 20%) 4 ml INH RQD [facility] Albuterol/Ipratropium (Duoneb 3 Mg/0.5 Mg (3 Ml) Ud) 3 ml INH RQD [facility] Last Admin: 06/29/17 16:47 Dose: 3 ml Famotidine (Pepcid) 20 mg PO DAILY [facility] Last Admin: 06/29/17 09:26 Dose: 20 mg Heparin Sodium (Porcine) (Heparin) 5,000 units SC Q8 [facility] Last Admin: 06/29/17 13:04 Dose: 5,000 units Piperacillin Sod/Tazobactam Sod (Zosyn 3.375 Gm Iv Premix) 3.375 gm in 50 mls @ 100 mls/hr IVPB Q6H [facility] Last Admin: 06/29/17 20:11 Dose: 100 mls/hr Vancomycin/Sodium Chloride (Vancomycin 1 Gm/Ns 200 Ml) 1 gm in 200 mls @ 133.333 mls/hr IVPB Q24H [facility] Stop: 07/02/17 21:31 Last Admin: 06/29/17 21:07 Dose: 133.333 mls/hr Azithromycin 500 mg/ Sodium (Chloride) 250 mls @ 167 mls/hr IVPB Q24H [facility] Last Admin: 06/29/17 17:59 Dose: 167 mls/hr Saccharomyces Boulardii (Florastor) 250 mg PO BID [facility] Last Admin: 06/29/17 18:02 Dose: 250 mg Results - Vital Signs Recent Vital Signs: Last Vital Signs Temp 98.3 F 06/29/17 15:41 Pulse 86 06/29/17 15:41 Resp 20 06/29/17 15:41 BP 123/78 06/29/17 15:41 Pulse Ox 96 06/29/17 15:41 - Labs Result Diagrams: 06/29/17 07:11 06/29/17 07:11 Labs: Laboratory Results - last 24 hr 06/29/17 06/29/17 06/29/17 07:11 07:11 07:11 WBC 9.3 RBC 4.72 Hgb 15.2 Hct 42.8 MCV 90.7 MCH 32.1 H MCHC 35.4 RDW 12.8 Plt Count 475 H MPV 7.2 Neut % (Auto) 76.3 H Lymph % (Auto) 13.1 L Evangeline % (Auto) 7.8 Eos % (Auto) 2.3 Baso % (Auto) 0.5 Neut # 7.1 H Lymph # 1.2 Evangeline # 0.7 Eos # 0.2 Baso # 0.0 ESR 45 H Sodium 136 Potassium 4.0 Chloride 99 Carbon Dioxide 26 Anion Gap 14 BUN 10 Creatinine 0.9 Est GFR ( Amer) > 60 Est GFR (Non-Af Amer) > 60 Random Glucose 106 Calcium 8.9 Phosphorus 3.7 Magnesium 2.1 Total Bilirubin 0.4 AST 25 ALT 49 Alkaline Phosphatase 113 C-React Prot High Sens < 15.00 H Total Protein 7.7 Albumin 3.7 Globulin 4.0 H Albumin/Globulin Ratio 0.9 L
[2017-06-29] MEDS ORDERED: Vancomycin 1 gm/NS 200 ml 1 GM/200 ML BAG IVPB SCH (22:15)
[2017-06-30] MEDS: Piperacill/Tazo 3.375gm in Dex 3.375 GM/50 ML BAG IVPB SCH ×4 (02:12→20:18)
--- NOTE | 2017-06-30 07:09 | CON ---
DATE: HISTORY OF PRESENT ILLNESS: The patient is a 36-year-old male and he is in isolation at the present time. I was asked to evaluate him and he has been started on antibiotics under my supervision. This patient came in, 36-year-old, with fever and back pain. He says, he has lost weight, 20 pounds in 4 months. He is undergoing a divorce with his . He has 2 kids, but he is living for 4 months with a friend and he started to have fevers and back pain. He said they started 3 weeks ago and he has been taking Tylenol for it and fever and pain comes back when he had been taking different mediations given by his friends from the Pharmacy, not helping him, and he states the pain comes back, it is 8/10. He has also been nauseated and having bad taste in his mouth. His cough is mostly dry, but at one time, he did bring some small amount of blood. He has poor appetite and he has lost weight also due to his social conditions and he did not recently travel. His friends smoke around him, but he does not smoke. He denies any recent travel. He denies any nausea, vomiting, diarrhea, or denies pain on deep inspiration. They did an x-ray,which found a left upper lobe infiltrate and CAT scan was suggested and he is in isolation. PAST MEDICAL HISTORY: He does not have any previous medical history of any surgeries. ALLERGIES: HE IS NOT ALLERGIC TO ANY MEDICINE. FAMILY HISTORY: Noncontributory. SOCIAL HISTORY: Significant for recent divorce within the last 4 months. 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 He drinks beer once a week and he states it could be up to 3 beers. REVIEW OF SYSTEMS: He did have chills, fever, weight loss. No headache. He denies any vision problems. Denies any sore throat. Denies any chest pain. No palpitations. No shortness of breath. Does have cough and brought in one time blood a little bit. He does have nausea. No constipation. No diarrhea. No vomiting. He has no urinary symptoms of urgency, frequency, or hematuria. He does have back pain and muscle pain, but has no numbness or tingling. No neurological symptoms. Denies any other illnesses. PHYSICAL EXAMINATION: VITAL SIGNS: On examination, I find his temperature when he came to the ER, he had a high-grade fever of 102.8, pulse was 117, blood pressure 125/84, and respirations 18. He was admitted on 06/27/2017. Now, his temperature is 98.6, pulse 86, blood pressure 107/70,respirations are 20. HEENT: Head is atraumatic, normocephalic. NECK: Supple. No lymphadenopathy in the neck. Trachea is central. LUNGS: Clear. No crackles or rales present. HEART: S1 and S2 is regular. No murmurs appreciated. ABDOMEN: Soft, nontender. No guarding. No rigidity present. EXTREMITIES: Have no edema, clubbing, or cyanosis. LABORATORY DATA: White count is 9.3, hemoglobin 15.2, hematocrit 42.8, platelet count is 475. Sodium is 136, potassium 4, chloride 99, CO2 is 26, BUN is 14, creatinine is 0.90. He had serology done. HIV is negative, flu is negative. Legionella and Mycoplasma came out negative. So, we will discontinue the Zithromax and we will continue with the vancomycin and Zosyn at this time and maybe discontinue tomorrow. Hematological, he did come with a white count of 11.3, now it is 9.3. Hematocrit is 15.2. He remains in isolation. Platelets are 475. Sodium is 136, potassium 4, chloride 99, CO2 is 26, anion gap is 14, BUN is 10, creatinine is 0.90. His C-reactive is less than 15. Procalcitonin is 0.08. He had a CT scan of the chest and the CAT scan shows mass-like consolidation, left upper lobe with a small central or elliptical shaped area of low attenuation and of tiny bubble of air consistent with pneumonia and had central abscess formation. ASSESSMENT AND PLAN: Followup CT scan and treatment to assess resolution, exclude underlying mass with central necrosis. So, they are talking about a mass, central necrosis and could be a dense pneumonia with abscess. So, we will continue with vancomycin and Zosyn at this time. Keep him in isolation as he has left upper lobe to rule out tuberculosis. PPD has been placed and AFB had been ordered and at this time, we will discontinue the Zithromax. We will follow. He is on vancomycin, we will make it 1 g q. 12. Hang Haque MD
[2017-06-30] MEDS: Acetylcysteine 20% Inhal Soln (4ml) INH SCH (07:29)
[2017-06-30] MEDS: Albuterol-Ipratrop 3 mg / 0.5 (3 ml) UD INH SCH (07:29)
[2017-06-30 07:45] LABS: BASO # 0.1 K/uL (0.0-0.2); BASO % 1.2 % (0.0-2.0); EOS # 0.2 K/uL (0.0-0.7); EOS % 2.4 % (0.0-4.0); HEMATOCRIT 45.2 % (35.0-51.0); LYMPH # 2.3 K/uL (1.0-4.3); LYMPH % 23.3 % (20.0-40.0); MEAN CELL VOLUME 90.8 fL (80.0-94.0); MEAN CORPUSCULAR HEMOGLOBIN 30.8 pg (27.0-31.0); MEAN PLATELET VOLUME 7.4 fL (7.2-11.7); MONO # 0.7 K/uL (0.0-0.8); MONO % 7.5 % (0.0-10.0); RED CELL DISTRIBUTION WIDTH 12.8 % (11.5-14.5); WHITE BLOOD COUNT 9.9 K/uL (4.8-10.8)
[2017-06-30 07:47] LABS: ALB/GLOB RATIO 1.2 (1.0-2.1); ALKALINE PHOSPHATASE 123 U/L (38-126); ALT/SGPT 73 U/L (21-72); AST/SGOT 39 U/L (17-59); BILIRUBIN,TOTAL 0.6 mg/dL (0.2-1.3); BLOOD UREA NITROGEN 12 mg/dL (9-20); CALCIUM 8.8 mg/dl (8.6-10.4); CARBON DIOXIDE 27 mmol/L (22-30); CHLORIDE 98 mmol/L (98-107); GFR AFRICAN-AMERICAN > 60; GLUCOSE,RANDOM 100 mg/dL (75-110); MAGNESIUM 2.2 mg/dL (1.6-2.3); PHOSPHOROUS 3.9 mg/dL (2.5-4.5); POTASSIUM 4.4 mmol/L (3.6-5.2); SODIUM 136 mmol/L (132-148); TOTAL PROTEIN 7.2 g/dL (6.3-8.3)
--- NOTE | 2017-06-30 07:56 | CP.PCM.PN ---
<Briana Hutson - Last Filed: 06/30/17 16:08> Subjective - Date & Time of Evaluation Date of Evaluation: 06/30/17 Time of Evaluation: 07:00 - Subjective Subjective: Patient was seen and examined at bedside in the AM. Patient denies shortness of breath, difficulty breathing, fever, body aches, chest pain, nausea, vomiting , diarrhea or constipation. Objective - Vital Signs/Intake and Output Vital Signs (last 24 hours): Temp Pulse Resp BP Pulse Ox 98.7 F 81 20 119/72 96 06/29/17 23:05 06/29/17 23:05 06/29/17 23:05 06/29/17 23:05 06/29/17 23:05 Intake and Output: 06/30/17 06/30/17 06:59 18:59 Intake Total 670 Balance 670 - Medications Medications: Current Medications Acetaminophen (Tylenol 325mg Tab) 650 mg PO Q6 PRN PRN Reason: Fever >100.4 F Acetylcysteine (Acetylcysteine 20%) 4 ml INH RQD [facility] Last Admin: 06/30/17 07:29 Dose: 4 ml Albuterol/Ipratropium (Duoneb 3 Mg/0.5 Mg (3 Ml) Ud) 3 ml INH RQD [facility] Last Admin: 06/30/17 07:29 Dose: 3 ml Famotidine (Pepcid) 20 mg PO DAILY [facility] Last Admin: 06/29/17 09:26 Dose: 20 mg Heparin Sodium (Porcine) (Heparin) 5,000 units SC Q8 [facility] Last Admin: 06/30/17 05:59 Dose: 5,000 units Piperacillin Sod/Tazobactam Sod (Zosyn 3.375 Gm Iv Premix) 3.375 gm in 50 mls @ 100 mls/hr IVPB Q6H [facility] Last Admin: 06/30/17 02:12 Dose: 100 mls/hr Vancomycin HCl 1 gm/ Sodium (Chloride) 250 mls @ 167 mls/hr IVPB Q12H [facility] Saccharomyces Boulardii (Florastor) 250 mg PO BID [facility] Last Admin: 06/29/17 18:02 Dose: 250 mg - Labs Labs: 06/30/17 07:18 06/30/17 07:18 - Constitutional Appears: No Acute Distress - Head Exam Head Exam: ATRAUMATIC, NORMAL INSPECTION - Eye Exam Eye Exam: EOMI, Normal appearance - ENT Exam ENT Exam: Mucous Membranes Moist - Respiratory Exam Respiratory Exam: Clear to Ausculation Bilateral, NORMAL BREATHING PATTERN - Cardiovascular Exam Cardiovascular Exam: REGULAR RHYTHM, RRR, +S1, +S2 - GI/Abdominal Exam GI & Abdominal Exam: Soft, Normal Bowel Sounds. absent: Tenderness - Extremities Exam Extremities Exam: Normal Inspection - Neurological Exam Neurological Exam: Alert, Awake, Oriented x3 - Psychiatric Exam Psychiatric exam: Normal Affect, Normal Mood - Skin Skin Exam: Normal Color, Warm Assessment and Plan - Assessment and Plan (Free Text) Assessment: 1.) Fever and Thoracic Back Pain - possibly secondary to TB vs. Pneumonia vs. Lung abscess - ID Consult: Dr. Haque --> help appreciated - Chest x-ray: Left upper lobe infiltrate consistent with pneumonia; Minor bibasilar atelectasis - Chest CT: Mass like consolidation left upper lobe with the small central a elliptical shaped area of low attenuation and at tiny bubble of air consistent with pneumonia and at central abscess formation; Follow-up CT scan following treatment to assess resolution and exclude underlying mass with central necrosis. Spoke with Dr. Haque and told not to start TB medications yet until receive all blood work, lung readings, and sputum cultures Medications: * Vancomycin 1g q12h * f/u vanco troph before 4th dose * Azythromycin 500mg q24h * Zosyn 3.375g q6h * Acetaminophen 650mg PO Q6h prn * Florastor 250mg PO BID * Acetylcystein 4ml INH RQD * Duoneb - f/u sputum culture, acid fast - Blood culture and Urine Culture: Negative - Legionella, mycoplasm, Influenza: negative - HIV negative - Hepatitis Panel: Negative - f/u Quantiferon gold - f/u PPD 07/01 2.) Prophylaxis - Heparin SC - Pepcid 20mg PO daily - SCDs - Isolation Case discussed with Dr. Anson Hutson PGY-1 <Davis Griggs - Last Filed: 06/30/17 19:08> Objective - Vital Signs/Intake and Output Vital Signs (last 24 hours): Temp Pulse Resp BP Pulse Ox 97.8 F 77 20 115/72 97 06/30/17 16:00 06/30/17 16:00 06/30/17 16:00 06/30/17 16:00 06/30/17 16:00 Intake and Output: 06/30/17 07/01/17 18:59 06:59 Intake Total 800 Balance 800 - Medications Medications: Current Medications Acetaminophen (Tylenol 325mg Tab) 650 mg PO Q6 PRN PRN Reason: Fever >100.4 F Acetylcysteine (Acetylcysteine 20%) 4 ml INH RQD [facility] Last Admin: 06/30/17 07:29 Dose: 4 ml Albuterol/Ipratropium (Duoneb 3 Mg/0.5 Mg (3 Ml) Ud) 3 ml INH RQD [facility] Last Admin: 06/30/17 07:29 Dose: 3 ml Famotidine (Pepcid) 20 mg PO DAILY [facility] Last Admin: 06/30/17 10:40 Dose: 20 mg Heparin Sodium (Porcine) (Heparin) 5,000 units SC Q8 [facility] Last Admin: 06/30/17 13:57 Dose: 5,000 units Piperacillin Sod/Tazobactam Sod (Zosyn 3.375 Gm Iv Premix) 3.375 gm in 50 mls @ 100 mls/hr IVPB Q6H [facility] Last Admin: 06/30/17 13:57 Dose: 100 mls/hr Vancomycin HCl 1 gm/ Sodium (Chloride) 250 mls @ 167 mls/hr IVPB Q12H [facility] Last Admin: 06/30/17 08:56 Dose: 167 mls/hr Saccharomyces Boulardii (Florastor) 250 mg PO BID [facility] Last Admin: 06/30/17 18:31 Dose: 250 mg - Labs Labs: 06/30/17 07:18 06/30/17 07:18 Attending/Attestation - Attestation I have personally seen and examined this patient.: Yes I have fully participated in the care of the patient.: Yes I have reviewed all pertinent clinical information, including history, physical exam and plan: Yes Notes (Text): 06/30/17 19:03 Patient was seen and examined at 5:30 PM 06/30/17 554 P Exam, Assessment and Plan were thoroughly gone over with the Resident. Assessments: 1). Left Lung Pneumonia/Abscess F/U PPD 07/01/17 Right Anterior Forearm and if negative then D/C respiratory isolation Initial Mycobacterium Cultures 06/28/17 and 06/29/17 do NOT show AFB Zosyn, Vancomycin, Azithromycin Blood Culture 06/27/17 is NGTD Urine Culture 06/27/17 shows NO Growth HIV Negative Hepatitis Panel Negative Influenza, Urine Legionella, Mycoplasma are all Negative aDvis Griggs D.O.
[2017-06-30] MEDS ORDERED: Pneumococcal 23-Valent Vaccine IM ONE (10:00)
[2017-06-30] MEDS: Saccharomyces Boulardi 250 mg Cap PO SCH ×2 (10:41→18:31)
[2017-07-01] MEDS: Piperacill/Tazo 3.375gm in Dex 3.375 GM/50 ML BAG IVPB SCH ×4 (01:00→20:34)
[2017-07-01 07:47] LABS: BASO % 0.5 % (0.0-2.0); EOS # 0.3 K/uL (0.0-0.7); EOS % 3.3 % (0.0-4.0); HEMATOCRIT 46.6 % (35.0-51.0); LYMPH # 1.6 K/uL (1.0-4.3); LYMPH % 17.1 % (20.0-40.0); MEAN CELL VOLUME 91.9 fL (80.0-94.0); MEAN CORPUSCULAR HEMOGLOBIN 30.7 pg (27.0-31.0); MEAN CORPUSCULAR HGB CONC 33.4 g/dL (33.0-37.0); MEAN PLATELET VOLUME 7.2 fL (7.2-11.7); MONO # 0.6 K/uL (0.0-0.8); MONO % 6.3 % (0.0-10.0); RED CELL DISTRIBUTION WIDTH 13.1 % (11.5-14.5); WHITE BLOOD COUNT 9.1 K/uL (4.8-10.8)
[2017-07-01] MEDS: Acetylcysteine 20% Inhal Soln (4ml) INH SCH (07:48)
[2017-07-01] MEDS: Albuterol-Ipratrop 3 mg / 0.5 (3 ml) UD INH SCH (07:48)
--- NOTE | 2017-07-01 07:51 | CP.PCM.PN ---
<Briana Hutson - Last Filed: 07/01/17 17:13> Subjective - Date & Time of Evaluation Date of Evaluation: 07/01/17 Time of Evaluation: 07:00 - Subjective Subjective: Patient was seen and examined at bedside in the AM. Patient denies shortness of breath, difficulty breathing, fever, body aches, chest pain, nausea, vomiting , diarrhea or constipation. Objective - Vital Signs/Intake and Output Vital Signs (last 24 hours): Temp Pulse Resp BP Pulse Ox 98.4 F 80 18 120/74 96 07/01/17 05:51 07/01/17 07:43 07/01/17 05:51 07/01/17 05:51 07/01/17 05:51 Intake and Output: 07/01/17 07/01/17 06:59 18:59 Intake Total 50 Balance 50 - Medications Medications: Current Medications Acetaminophen (Tylenol 325mg Tab) 650 mg PO Q6 PRN PRN Reason: Fever >100.4 F Acetylcysteine (Acetylcysteine 20%) 4 ml INH RQD [facility] Last Admin: 07/01/17 07:48 Dose: 4 ml Albuterol/Ipratropium (Duoneb 3 Mg/0.5 Mg (3 Ml) Ud) 3 ml INH RQD [facility] Last Admin: 07/01/17 07:48 Dose: 3 ml Famotidine (Pepcid) 20 mg PO DAILY [facility] Last Admin: 06/30/17 10:40 Dose: 20 mg Heparin Sodium (Porcine) (Heparin) 5,000 units SC Q8 [facility] Last Admin: 07/01/17 05:53 Dose: 5,000 units Piperacillin Sod/Tazobactam Sod (Zosyn 3.375 Gm Iv Premix) 3.375 gm in 50 mls @ 100 mls/hr IVPB Q6H [facility] Last Admin: 07/01/17 01:00 Dose: 100 mls/hr Vancomycin HCl 1 gm/ Sodium (Chloride) 250 mls @ 167 mls/hr IVPB Q12H [facility] Last Admin: 06/30/17 21:28 Dose: 167 mls/hr Saccharomyces Boulardii (Florastor) 250 mg PO BID [facility] Last Admin: 06/30/17 18:31 Dose: 250 mg - Labs Labs: 06/30/17 07:18 06/30/17 07:18 - Constitutional Appears: No Acute Distress - Head Exam Head Exam: ATRAUMATIC, NORMAL INSPECTION - Eye Exam Eye Exam: EOMI, Normal appearance - ENT Exam ENT Exam: Mucous Membranes Moist - Respiratory Exam Respiratory Exam: Clear to Ausculation Bilateral, NORMAL BREATHING PATTERN - Cardiovascular Exam Cardiovascular Exam: REGULAR RHYTHM, RRR, +S1, +S2 - GI/Abdominal Exam GI & Abdominal Exam: Soft, Normal Bowel Sounds. absent: Tenderness - Extremities Exam Extremities Exam: Normal Inspection - Neurological Exam Neurological Exam: Alert, Awake, Oriented x3 - Psychiatric Exam Psychiatric exam: Normal Affect, Normal Mood - Skin Skin Exam: Normal Color, Warm Assessment and Plan - Assessment and Plan (Free Text) Assessment: 1.) Left upper lobe Pneumonia with a Central Abscess - ID Consult: Dr. Haque --> help appreciated - Chest x-ray: Left upper lobe infiltrate consistent with pneumonia; Minor bibasilar atelectasis - Chest CT: Mass like consolidation left upper lobe with the small central a elliptical shaped area of low attenuation and at tiny bubble of air consistent with pneumonia and at central abscess formation; Follow-up CT scan following treatment to assess resolution and exclude underlying mass with central necrosis. - Repeat Chest CT in 6-8 weeks - Acid fast Bacilli x3 Negative - Blood culture: Negative - Sputum Culture: Negative - Urine Culture: Negative - Legionella, Mycoplasm, Influenza: Negative - HIV negative - Hepatitis Panel: Negative - Quantiferon Gold: Negative - PPD 07/01: Negative Medications: * Vancomycin 1g q12h * vanco troph before 4th dose (06/30):< 5.0 * Azythromycin 500mg q24h - discontinued * Zosyn 3.375g q6h * Acetaminophen 650mg PO Q6h prn for fever * Florastor 250mg PO BID * Guaifenesin 100mg q4H PRN for cough - Patient removed from isolation 07/01/17 2.) Thrombocytosis - Possibly secondary to Acute Phase Reaction due to left upper lobe pneumonia - Continue to Monitor 3.) Prophylaxis - Heparin SC - Pepcid 20mg PO daily - SCDs Case discussed with Dr. Anson Hutson PGY-1 <Davis Griggs - Last Filed: 07/01/17 18:52> Objective - Vital Signs/Intake and Output Vital Signs (last 24 hours): Temp Pulse Resp BP Pulse Ox 98.0 F 87 20 117/72 97 07/01/17 16:37 07/01/17 16:37 07/01/17 16:37 07/01/17 16:37 07/01/17 16:37 Intake and Output: 07/01/17 07/01/17 06:59 18:59 Intake Total 50 Balance 50 - Medications Medications: Current Medications Acetaminophen (Tylenol 325mg Tab) 650 mg PO Q6 PRN PRN Reason: Fever >100.4 F Famotidine (Pepcid) 20 mg PO DAILY [facility] Last Admin: 07/01/17 09:36 Dose: 20 mg Guaifenesin (Robitussin) 100 mg PO Q4H PRN PRN Reason: Cough Heparin Sodium (Porcine) (Heparin) 5,000 units SC Q8 [facility] Last Admin: 07/01/17 14:16 Dose: 5,000 units Piperacillin Sod/Tazobactam Sod (Zosyn 3.375 Gm Iv Premix) 3.375 gm in 50 mls @ 100 mls/hr IVPB Q6H [facility] Last Admin: 07/01/17 14:16 Dose: 100 mls/hr Vancomycin HCl 1 gm/ Sodium (Chloride) 250 mls @ 167 mls/hr IVPB Q12H [facility] Last Admin: 07/01/17 08:37 Dose: 167 mls/hr Saccharomyces Boulardii (Florastor) 250 mg PO BID [facility] Last Admin: 07/01/17 17:08 Dose: 250 mg - Labs Labs: 07/01/17 07:25 07/01/17 07:25 Attending/Attestation - Attestation I have personally seen and examined this patient.: Yes I have fully participated in the care of the patient.: Yes I have reviewed all pertinent clinical information, including history, physical exam and plan: Yes Notes (Text): 07/01/17 18:50 Patient was seen and examined at 3:45 PM 07/01/17 554 P Exam, Assessment and Plan were thoroughly gone over with the Resident. HEENT, Cardio, Resp, GI, Ext, Nuero exams were unremarkable. Assessments: 1). Left Lung Pneumonia/Abscess PPD 07/01/17 Right Anterior Forearm is NEGATIVE and Quanteferon Gold is NEGATIVE : D/C'd respiratory isolation Initial Mycobacterium Cultures 06/28/17 and 06/29/17 do NOT show AFB Zosyn, Vancomycin, Azithromycin Blood Culture 06/27/17 is NGTD Urine Culture 06/27/17 shows NO Growth HIV Negative Hepatitis Panel Negative Influenza, Urine Legionella, Mycoplasma are all Negative Davis Griggs D.O.
[2017-07-01 08:05] LABS: ALB/GLOB RATIO 1.1 (1.0-2.1); ALKALINE PHOSPHATASE 126 U/L (38-126); ALT/SGPT 85 U/L (21-72); AST/SGOT 32 U/L (17-59); BILIRUBIN,TOTAL 0.6 mg/dL (0.2-1.3); BLOOD UREA NITROGEN 11 mg/dL (9-20); CALCIUM 8.9 mg/dl (8.6-10.4); CARBON DIOXIDE 24 mmol/L (22-30); CHLORIDE 99 mmol/L (98-107); GFR AFRICAN-AMERICAN > 60; GLUCOSE,RANDOM 89 mg/dL (75-110); MAGNESIUM 2.1 mg/dL (1.6-2.3); PHOSPHOROUS 3.5 mg/dL (2.5-4.5); POTASSIUM 4.2 mmol/L (3.6-5.2); SODIUM 135 mmol/L (132-148); TOTAL PROTEIN 7.4 g/dL (6.3-8.3)
[2017-07-01] MEDS: Saccharomyces Boulardi 250 mg Cap PO SCH ×2 (09:37→17:08)
[2017-07-01] MEDS ORDERED: guaiFENesin 100 mg/5 ml Syrup UD PO PRN (17:17)
[2017-07-02] MEDS: Piperacill/Tazo 3.375gm in Dex 3.375 GM/50 ML BAG IVPB SCH ×4 (02:57→19:54)
[2017-07-02 06:57] LABS: BASO # 0.1 K/uL (0.0-0.2); BASO % 0.7 % (0.0-2.0); EOS # 0.3 K/uL (0.0-0.7); HEMATOCRIT 45.5 % (35.0-51.0); LYMPH # 1.7 K/uL (1.0-4.3); LYMPH % 16.6 % (20.0-40.0); MEAN CELL VOLUME 91.5 fL (80.0-94.0); MEAN CORPUSCULAR HEMOGLOBIN 31.1 pg (27.0-31.0); MEAN CORPUSCULAR HGB CONC 33.9 g/dL (33.0-37.0); MEAN PLATELET VOLUME 6.9 fL (7.2-11.7); MONO # 0.7 K/uL (0.0-0.8); RED CELL DISTRIBUTION WIDTH 12.9 % (11.5-14.5)
--- NOTE | 2017-07-02 07:05 | CP.PCM.PN ---
Subjective - Date & Time of Evaluation Date of Evaluation: 07/02/17 Time of Evaluation: 07:00 - Subjective Subjective: Patient was seen and examined at bedside in the AM. Patient denies shortness of breath, difficulty breathing, fever, body aches, chest pain, nausea, vomiting , diarrhea or constipation. Objective - Vital Signs/Intake and Output Vital Signs (last 24 hours): Temp Pulse Resp BP Pulse Ox 98 F 71 20 100/63 96 07/02/17 00:00 07/02/17 00:00 07/02/17 00:00 07/02/17 00:00 07/02/17 00:00 - Medications Medications: Current Medications Acetaminophen (Tylenol 325mg Tab) 650 mg PO Q6 PRN PRN Reason: Fever >100.4 F Famotidine (Pepcid) 20 mg PO DAILY [facility] Last Admin: 07/01/17 09:36 Dose: 20 mg Guaifenesin (Robitussin) 100 mg PO Q4H PRN PRN Reason: Cough Heparin Sodium (Porcine) (Heparin) 5,000 units SC Q8 [facility] Last Admin: 07/02/17 06:51 Dose: 5,000 units Piperacillin Sod/Tazobactam Sod (Zosyn 3.375 Gm Iv Premix) 3.375 gm in 50 mls @ 100 mls/hr IVPB Q6H [facility] Last Admin: 07/02/17 02:57 Dose: 100 mls/hr Vancomycin HCl 1 gm/ Sodium (Chloride) 250 mls @ 167 mls/hr IVPB Q12H [facility] Last Admin: 07/01/17 21:38 Dose: 167 mls/hr Saccharomyces Boulardii (Florastor) 250 mg PO BID [facility] Last Admin: 07/01/17 17:08 Dose: 250 mg - Labs Labs: 07/02/17 06:49 07/01/17 07:25 - Constitutional Appears: No Acute Distress - Head Exam Head Exam: ATRAUMATIC, NORMAL INSPECTION - Eye Exam Eye Exam: EOMI, Normal appearance - ENT Exam ENT Exam: Mucous Membranes Moist - Respiratory Exam Respiratory Exam: Clear to Ausculation Bilateral, NORMAL BREATHING PATTERN. absent: Rales, Rhonchi, Wheezes, Stridor - Cardiovascular Exam Cardiovascular Exam: REGULAR RHYTHM, RRR, +S1, +S2 - GI/Abdominal Exam GI & Abdominal Exam: Soft, Normal Bowel Sounds. absent: Tenderness - Extremities Exam Extremities Exam: Normal Inspection. absent: Pedal Edema, Tenderness - Neurological Exam Neurological Exam: Alert, Awake, Oriented x3 - Psychiatric Exam Psychiatric exam: Normal Affect, Normal Mood - Skin Skin Exam: Normal Color, Warm Assessment and Plan - Assessment and Plan (Free Text) Assessment: 1.) Left upper lobe Pneumonia with a Central Abscess ID Consult: Dr. Haque --> help appreciated - Chest x-ray: Left upper lobe infiltrate consistent with pneumonia; Minor bibasilar atelectasis - Chest CT: Mass like consolidation left upper lobe with the small central a elliptical shaped area of low attenuation and at tiny bubble of air consistent with pneumonia and at central abscess formation; Follow-up CT scan following treatment to assess resolution and exclude underlying mass with central necrosis. - Repeat Chest CT in 6-8 weeks - Patient will need weekly Chest X-ray - f/u ECHO Cardio/Thoracic Consult: Dr. Garner: For left lung abscess if necessary for surgical drainage. - Acid fast Bacilli x3 Negative - Blood culture: Negative - Sputum Culture: Negative - Urine Culture: Negative - Legionella, Mycoplasm, Influenza: Negative - HIV negative - Hepatitis Panel: Negative - Quantiferon Gold: Negative - PPD 07/01: Negative Medications: * Vancomycin 1g q12h * vanco troph before 4th dose (06/30):< 5.0 * f/u vano troph 07/03/17 at 8:30AM * Azythromycin 500mg q24h - discontinued * Zosyn 3.375g q6h * Acetaminophen 650mg PO Q6h prn for fever * Florastor 250mg PO BID * Guaifenesin 100mg q4H PRN for cough - Patient removed from isolation 07/01/17 2.) Thrombocytosis - Possibly secondary to Acute Phase Reaction due to left upper lobe pneumonia - Continue to Monitor 3.) Prophylaxis - Heparin SC - Pepcid 20mg PO daily - SCDs Disposition: pending ELIZABETH and Dr. Garner's recommendations patient will be discharged on home antibiotics and to follow up at the [facility] Case discussed with Dr. Anson Hutson PGY-1
[2017-07-02 07:48] LABS: ALB/GLOB RATIO 1.1 (1.0-2.1); ALKALINE PHOSPHATASE 126 U/L (38-126); ALT/SGPT 85 U/L (21-72); AST/SGOT 34 U/L (17-59); BILIRUBIN,TOTAL 0.6 mg/dL (0.2-1.3); BLOOD UREA NITROGEN 10 mg/dL (9-20); CALCIUM 8.7 mg/dl (8.6-10.4); CARBON DIOXIDE 26 mmol/L (22-30); CHLORIDE 99 mmol/L (98-107); GFR AFRICAN-AMERICAN > 60; GLUCOSE,RANDOM 86 mg/dL (75-110); PHOSPHOROUS 3.7 mg/dL (2.5-4.5); POTASSIUM 4.5 mmol/L (3.6-5.2); SODIUM 138 mmol/L (132-148); TOTAL PROTEIN 7.1 g/dL (6.3-8.3)
--- NOTE | 2017-07-02 09:56 | CP.PCM.CON ---
Past Patient History - Infectious Disease Hx of Infectious Diseases: None - Past Medical History & Family History Past Medical History?: Yes - Past Social History Smoking Status: Never Smoked - CARDIAC Hx Cardiac Disorders: No - PULMONARY Hx Asthma: Yes - NEUROLOGICAL Hx Neurological Disorder: No - HEENT Hx HEENT Problems: No - RENAL Hx Chronic Kidney Disease: No - ENDOCRINE/METABOLIC Hx Endocrine Disorders: No - HEMATOLOGICAL/ONCOLOGICAL Hx Blood Disorders: No - INTEGUMENTARY Hx Dermatological Problems: No - MUSCULOSKELETAL/RHEUMATOLOGICAL Hx Falls: No - GASTROINTESTINAL Hx Gastrointestinal Disorders: No - GENITOURINARY/GYNECOLOGICAL Hx Genitourinary Disorders: No - PSYCHIATRIC Hx Substance Use: No - SURGICAL HISTORY Other/Comment: Dental Work - ANESTHESIA Hx Anesthesia: Yes Hx Anesthesia Reactions: No Hx Malignant Hyperthermia: No Has any member of the family had a problem w/ anesthesia?: No Meds Allergies/Adverse Reactions: Allergies Allergy/AdvReac Type Severity Reaction Status Date / Time No Known Allergies Allergy Verified 06/27/17 17:21 - Medications Medications: Current Medications Acetaminophen (Tylenol 325mg Tab) 650 mg PO Q6 PRN PRN Reason: Fever >100.4 F Famotidine (Pepcid) 20 mg PO DAILY [facility] Last Admin: 07/01/17 09:36 Dose: 20 mg Guaifenesin (Robitussin) 100 mg PO Q4H PRN PRN Reason: Cough Heparin Sodium (Porcine) (Heparin) 5,000 units SC Q8 [facility] Last Admin: 07/02/17 06:51 Dose: 5,000 units Piperacillin Sod/Tazobactam Sod (Zosyn 3.375 Gm Iv Premix) 3.375 gm in 50 mls @ 100 mls/hr IVPB Q6H [facility] Last Admin: 07/02/17 02:57 Dose: 100 mls/hr Vancomycin HCl 1 gm/ Sodium (Chloride) 250 mls @ 167 mls/hr IVPB Q12H [facility] Last Admin: 07/01/17 21:38 Dose: 167 mls/hr Saccharomyces Boulardii (Florastor) 250 mg PO BID [facility] Last Admin: 07/01/17 17:08 Dose: 250 mg Results - Vital Signs Recent Vital Signs: Last Vital Signs Temp 98.2 F 07/02/17 08:00 Pulse 74 07/02/17 08:00 Resp 20 07/02/17 08:00 BP 105/67 07/02/17 08:00 Pulse Ox 100 07/02/17 08:00 - Labs Result Diagrams: 07/02/17 06:49 07/02/17 06:49 Labs: Laboratory Results - last 24 hr 07/02/17 07/02/17 06:49 06:49 WBC 10.0 RBC 4.97 Hgb 15.4 Hct 45.5 MCV 91.5 MCH 31.1 H MCHC 33.9 RDW 12.9 Plt Count 490 H MPV 6.9 L Neut % (Auto) 72.7 Lymph % (Auto) 16.6 L [place] % (Auto) 7.0 Eos % (Auto) 3.0 Baso % (Auto) 0.7 Neut # 7.3 H Lymph # 1.7 [place] # 0.7 Eos # 0.3 Baso # 0.1 Sodium 138 Potassium 4.5 Chloride 99 Carbon Dioxide 26 Anion Gap 17 BUN 10 Creatinine 0.8 Est GFR ( Amer) > 60 Est GFR (Non-Af Amer) > 60 Random Glucose 86 Calcium 8.7 Phosphorus 3.7 Magnesium 2.0 Total Bilirubin 0.6 AST 34 ALT 85 H Alkaline Phosphatase 126 Total Protein 7.1 Albumin 3.8 Globulin 3.3 Albumin/Globulin Ratio 1.1
[2017-07-02] MEDS: Saccharomyces Boulardi 250 mg Cap PO SCH ×2 (10:05→18:03)
--- NOTE | 2017-07-02 13:03 | CP.PCM.CON ---
History of Present Illness - History of Present Illness History of Present Illness: Reason for consultation: Left upper lobe cavitary lung abscess-is there role for surgery at this time. Requested by:Dr Cui. Pt s/e. Imaging studies reviewed as well as labs and progress note. 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 CT of chest: 5x6cm left upper lobe consolidation with 2cm central cavitay process containing some air bubbles. Some reactive mediastianal nodes Since the adm he has been on antibiotics(zosyn and Vanco), and defervesced thought wbcs somewhat elevated. Pt states he feels great now. Clinically, the whole process started out as pneumonia and then abscess. I inclined to recommend current treatment with fu ct of chest. A remote possibility is lung ca with cavitary process. Recomm pulmonary consult. a/p: 1. Left upper lobe consolidation with cavity-due to lung abscess. 2. Current rx with followup ct for a min of 2 months. 3. Pulmonary consult. 4. will follow, 5. d/w Dr Cui. Past Patient History - Infectious Disease Hx of Infectious Diseases: None - Past Medical History & Family History Past Medical History?: Yes - Past Social History Smoking Status: Never Smoked - CARDIAC Hx Cardiac Disorders: No - PULMONARY Hx Asthma: Yes - NEUROLOGICAL Hx Neurological Disorder: No - HEENT Hx HEENT Problems: No - RENAL Hx Chronic Kidney Disease: No - ENDOCRINE/METABOLIC Hx Endocrine Disorders: No - HEMATOLOGICAL/ONCOLOGICAL Hx Blood Disorders: No - INTEGUMENTARY Hx Dermatological Problems: No - MUSCULOSKELETAL/RHEUMATOLOGICAL Hx Falls: No - GASTROINTESTINAL Hx Gastrointestinal Disorders: No - GENITOURINARY/GYNECOLOGICAL Hx Genitourinary Disorders: No - PSYCHIATRIC Hx Substance Use: No - SURGICAL HISTORY Other/Comment: Dental Work - ANESTHESIA Hx Anesthesia: Yes Hx Anesthesia Reactions: No Hx Malignant Hyperthermia: No Has any member of the family had a problem w/ anesthesia?: No Meds Allergies/Adverse Reactions: Allergies Allergy/AdvReac Type Severity Reaction Status Date / Time No Known Allergies Allergy Verified 06/27/17 17:21 - Medications Medications: Current Medications Acetaminophen (Tylenol 325mg Tab) 650 mg PO Q6 PRN PRN Reason: Fever >100.4 F Famotidine (Pepcid) 20 mg PO DAILY [facility] Last Admin: 07/02/17 10:05 Dose: 20 mg Guaifenesin (Robitussin) 100 mg PO Q4H PRN PRN Reason: Cough Heparin Sodium (Porcine) (Heparin) 5,000 units SC Q8 [facility] Last Admin: 07/02/17 06:51 Dose: 5,000 units Piperacillin Sod/Tazobactam Sod (Zosyn 3.375 Gm Iv Premix) 3.375 gm in 50 mls @ 100 mls/hr IVPB Q6H [facility] Last Admin: 07/02/17 08:13 Dose: 100 mls/hr Vancomycin HCl 1 gm/ Sodium (Chloride) 250 mls @ 167 mls/hr IVPB Q12H [facility] Last Admin: 07/02/17 10:41 Dose: 167 mls/hr Saccharomyces Boulardii (Florastor) 250 mg PO BID [facility] Last Admin: 07/02/17 10:05 Dose: 250 mg Results - Vital Signs Recent Vital Signs: Last Vital Signs Temp 98.2 F 07/02/17 08:00 Pulse 74 07/02/17 08:00 Resp 20 07/02/17 08:00 BP 105/67 07/02/17 08:00 Pulse Ox 100 07/02/17 08:00 - Labs Result Diagrams: 07/02/17 06:49 07/02/17 06:49 Labs: Laboratory Results - last 24 hr 07/02/17 07/02/17 06:49 06:49 WBC 10.0 RBC 4.97 Hgb 15.4 Hct 45.5 MCV 91.5 MCH 31.1 H MCHC 33.9 RDW 12.9 Plt Count 490 H MPV 6.9 L Neut % (Auto) 72.7 Lymph % (Auto) 16.6 L [place] % (Auto) 7.0 Eos % (Auto) 3.0 Baso % (Auto) 0.7 Neut # 7.3 H Lymph # 1.7 [place] # 0.7 Eos # 0.3 Baso # 0.1 Sodium 138 Potassium 4.5 Chloride 99 Carbon Dioxide 26 Anion Gap 17 BUN 10 Creatinine 0.8 Est GFR ( Amer) > 60 Est GFR (Non-Af Amer) > 60 Random Glucose 86 Calcium 8.7 Phosphorus 3.7 Magnesium 2.0 Total Bilirubin 0.6 AST 34 ALT 85 H Alkaline Phosphatase 126 Total Protein 7.1 Albumin 3.8 Globulin 3.3 Albumin/Globulin Ratio 1.1
--- NOTE | 2017-07-02 20:39 | CARD ---
APPROVED REPORT EXAM: Two-dimensional and M-mode echocardiogram with Doppler and color Doppler. Other Information Quality : GoodRhythm : INDICATION Rule out subacute bacterial endocarditis Fever/ Lung Abscess, Pneumonia 2D DIMENSIONS IVSd1.0 (0.7-1.1cm)LVDd4.5 (3.9-5.9cm) PWd1.0 (0.7-1.1cm)LVDs3.1 (2.5-4.0cm) FS (%) 32.8 %LVEF (%)61.4 (>50%) M-Mode DIMENSIONS Left Atrium (MM)3.34 (2.5-4.0cm)Aortic Root3.54 (2.2-3.7cm) Aortic Cusp Exc.2.39 (1.5-2.0cm) Mitral Valve MV E Wybeaggr59.4cm/sMV A Xyhjazin84.5cm/sE/A ratio0.9 TDI E/Lateral E'0.0E/Medial E'0.0 Tricuspid Valve TR Peak [id number]/sTR Peak Gr.[id number] LEFT VENTRICLE The left ventricle is normal size. There is normal left ventricular wall thickness. The left ventricular function is normal. The left ventricular ejection fraction is within the normal range. About 65% No regional wall motion abnormalities noted. The left ventricular diastolic function is normal. No left ventricle thrombus noted on this study. There is no ventricular septal defect visualized. There is no left ventricular aneurysm. There is no mass noted in the left ventricle. RIGHT VENTRICLE The right ventricle is normal size. There is normal right ventricular wall thickness. The right ventricular systolic function is normal. ATRIA The left atrium size is normal. The right atrium size is normal. The interatrial septum is intact with no evidence for an atrial septal defect. AORTIC VALVE The aortic valve is normal in structure and function. No aortic regurgitation is present. There is no aortic valvular stenosis. There is no aortic valvular vegetation. MITRAL VALVE The mitral valve is normal in structure and function. There is no evidence of mitral valve prolapse. There is no mitral valve stenosis. There is no mitral valve regurgitation noted. TRICUSPID VALVE The tricuspid valve is normal in structure and function. There is no tricuspid valve regurgitation noted. There is no tricuspid valve prolapse or vegetation. There is no tricuspid valve stenosis. PULMONIC VALVE The pulmonary valve is normal in structure and function. There is no pulmonic valvular regurgitation. There is no pulmonic valvular stenosis. GREAT VESSELS The aortic root is normal in size. The ascending aorta is normal in size. The pulmonary artery is normal. The IVC is normal in size and collapses >50% with inspiration. PERICARDIAL EFFUSION The pericardium appears normal. There is no pleural effusion. <Conclusion> Normal LV systolic function. Normal Doppler.
[2017-07-03] MEDS: Piperacill/Tazo 3.375gm in Dex 3.375 GM/50 ML BAG IVPB SCH ×3 (02:07→14:21)
[2017-07-03 07:51] LABS: BASO # 0.1 K/uL (0.0-0.2); BASO % 0.8 % (0.0-2.0); EOS # 0.4 K/uL (0.0-0.7); EOS % 4.4 % (0.0-4.0); HEMATOCRIT 48.3 % (35.0-51.0); LYMPH # 1.9 K/uL (1.0-4.3); LYMPH % 22.7 % (20.0-40.0); MEAN CELL VOLUME 91.6 fL (80.0-94.0); MEAN CORPUSCULAR HEMOGLOBIN 31.1 pg (27.0-31.0); MEAN PLATELET VOLUME 7.3 fL (7.2-11.7); MONO # 0.5 K/uL (0.0-0.8); MONO % 5.8 % (0.0-10.0); NRBC % 0.1 % (0.0-2.0); RED CELL DISTRIBUTION WIDTH 13.2 % (11.5-14.5); WHITE BLOOD COUNT 8.2 K/uL (4.8-10.8)
[2017-07-03 07:57] LABS: ALB/GLOB RATIO 1.1 (1.0-2.1); ALKALINE PHOSPHATASE 125 U/L (38-126); ALT/SGPT 88 U/L (21-72); AST/SGOT 33 U/L (17-59); BILIRUBIN,TOTAL 0.6 mg/dL (0.2-1.3); BLOOD UREA NITROGEN 10 mg/dL (9-20); CARBON DIOXIDE 29 mmol/L (22-30); CHLORIDE 102 mmol/L (98-107); GFR AFRICAN-AMERICAN > 60; GLUCOSE,RANDOM 97 mg/dL (75-110); MAGNESIUM 2.1 mg/dL (1.6-2.3); PHOSPHOROUS 3.8 mg/dL (2.5-4.5); POTASSIUM 4.4 mmol/L (3.6-5.2); SODIUM 140 mmol/L (132-148); TOTAL PROTEIN 7.5 g/dL (6.3-8.3)
[2017-07-03] MEDS: Saccharomyces Boulardi 250 mg Cap PO SCH ×2 (09:14→17:00)
--- NOTE | 2017-07-03 09:46 | CP.PCM.PN ---
Subjective - Date & Time of Evaluation Date of Evaluation: 07/03/17 Time of Evaluation: 10:20 - Subjective Subjective: CT Sx: Dr Garner Pt S&E. NAEO. Reports resolution of discomfort. No fevers since admission. Denies shortness of breath. TB sputum cultures negative x 3. D/W Dr Griggs, Pulm has been consulted. Discharge pending pulm eval. Recs remain the same: cont abx as per ID and repeat CT in 2 months Objective - Vital Signs/Intake and Output Vital Signs (last 24 hours): Temp Pulse Resp BP Pulse Ox 98.1 F 77 20 120/80 95 07/03/17 07:07 07/03/17 07:07 07/03/17 07:07 07/03/17 07:07 07/03/17 07:07 Intake and Output: 07/03/17 07/03/17 06:59 18:59 Intake Total 390 Balance 390 - Medications Medications: Current Medications Acetaminophen (Tylenol 325mg Tab) 650 mg PO Q6 PRN PRN Reason: Fever >100.4 F Famotidine (Pepcid) 20 mg PO DAILY [facility] Last Admin: 07/03/17 09:14 Dose: 20 mg Guaifenesin (Robitussin) 100 mg PO Q4H PRN PRN Reason: Cough Heparin Sodium (Porcine) (Heparin) 5,000 units SC Q8 [facility] Last Admin: 07/03/17 06:45 Dose: Not Given Piperacillin Sod/Tazobactam Sod (Zosyn 3.375 Gm Iv Premix) 3.375 gm in 50 mls @ 100 mls/hr IVPB Q6H [facility] Last Admin: 07/03/17 08:38 Dose: 100 mls/hr Vancomycin HCl 1 gm/ Sodium (Chloride) 250 mls @ 167 mls/hr IVPB Q12H [facility] Last Admin: 07/02/17 21:48 Dose: 167 mls/hr Saccharomyces Boulardii (Florastor) 250 mg PO BID [facility] Last Admin: 07/03/17 09:14 Dose: 250 mg - Labs Labs: 07/03/17 07:31 07/03/17 07:31 - Constitutional Appears: Non-toxic, No Acute Distress - ENT Exam ENT Exam: Mucous Membranes Moist - Respiratory Exam Respiratory Exam: absent: Accessory Muscle Use, Respiratory Distress - Cardiovascular Exam Cardiovascular Exam: REGULAR RHYTHM. absent: Tachycardia - GI/Abdominal Exam GI & Abdominal Exam: Soft. absent: Distended, Tenderness - Neurological Exam Neurological Exam: Alert, Awake, Oriented x3 - Psychiatric Exam Psychiatric exam: Normal Affect, Normal Mood - Skin Skin Exam: Normal Color, Warm Assessment and Plan - Assessment and Plan (Free Text) Assessment: 36M with left upper lobe lesion Plan: Sputum cultures negative abx per ID repeat CT in 2 months no surgical intervention planned d/w Dr Garner and Dr Nabeel Garzon, PGY3
--- NOTE | 2017-07-03 15:36 | CP.PCM.PN ---
<Briana Hutson - Last Filed: 07/03/17 19:20> Subjective - Date & Time of Evaluation Date of Evaluation: 07/03/17 Time of Evaluation: 07:00 - Subjective Subjective: Patient was seen and examined at bedside in the AM. Patient is still coughing but not as much as before. Patient is producing a thick yellow sputum. Patient also states he started to have a rash on his back that is itching and also a bit on his left chest. Patient denies shortness of breath, difficulty breathing , fever, body aches, chest pain, nausea, vomiting, constipation, diarrhea, chills, or headache. Objective - Vital Signs/Intake and Output Vital Signs (last 24 hours): Temp Pulse Resp BP Pulse Ox 98.1 F 77 20 120/80 95 07/03/17 07:07 07/03/17 07:07 07/03/17 07:07 07/03/17 07:07 07/03/17 07:07 Intake and Output: 07/03/17 07/03/17 06:59 18:59 Intake Total 390 Balance 390 - Medications Medications: Current Medications Acetaminophen (Tylenol 325mg Tab) 650 mg PO Q6 PRN PRN Reason: Fever >100.4 F Famotidine (Pepcid) 20 mg PO DAILY [facility] Last Admin: 07/03/17 09:14 Dose: 20 mg Guaifenesin (Robitussin) 100 mg PO Q4H PRN PRN Reason: Cough Heparin Sodium (Porcine) (Heparin) 5,000 units SC Q8 [facility] Last Admin: 07/03/17 14:22 Dose: 5,000 units Piperacillin Sod/Tazobactam Sod (Zosyn 3.375 Gm Iv Premix) 3.375 gm in 50 mls @ 100 mls/hr IVPB Q6H [facility] Last Admin: 07/03/17 14:21 Dose: 100 mls/hr Vancomycin HCl 1 gm/ Sodium (Chloride) 250 mls @ 167 mls/hr IVPB Q12H [facility] Last Admin: 07/03/17 12:24 Dose: 167 mls/hr Saccharomyces Boulardii (Florastor) 250 mg PO BID [facility] Last Admin: 07/03/17 09:14 Dose: 250 mg - Labs Labs: 07/03/17 07:31 07/03/17 07:31 - Constitutional Appears: No Acute Distress - Head Exam Head Exam: ATRAUMATIC, NORMAL INSPECTION - Eye Exam Eye Exam: EOMI, Normal appearance - ENT Exam ENT Exam: Mucous Membranes Moist - Respiratory Exam Respiratory Exam: Clear to Ausculation Bilateral, NORMAL BREATHING PATTERN. absent: Rales, Rhonchi, Wheezes, Respiratory Distress, Stridor - Cardiovascular Exam Cardiovascular Exam: REGULAR RHYTHM, RRR, +S1, +S2 - GI/Abdominal Exam GI & Abdominal Exam: Soft, Normal Bowel Sounds. absent: Tenderness - Extremities Exam Extremities Exam: Normal Inspection. absent: Pedal Edema, Tenderness - Neurological Exam Neurological Exam: Alert, Awake, Oriented x3 - Psychiatric Exam Psychiatric exam: Normal Affect, Normal Mood - Skin Skin Exam: Normal Color, Rash, Urticaria (macular rash on the back and upper left clavical), Warm Assessment and Plan - Assessment and Plan (Free Text) Assessment: 1.) Left upper lobe Pneumonia with a Central Abscess ID Consult: Dr. Haque --> help appreciated - Chest x-ray: Left upper lobe infiltrate consistent with pneumonia; Minor bibasilar atelectasis - Chest CT: Mass like consolidation left upper lobe with the small central a elliptical shaped area of low attenuation and at tiny bubble of air consistent with pneumonia and at central abscess formation; Follow-up CT scan following treatment to assess resolution and exclude underlying mass with central necrosis. - Repeat Chest CT in 6-8 weeks - Patient will need weekly Chest X-ray - ECHO: EF 61.4%; Normal LV systolic function; normal doppler Cardio/Thoracic Consult: Dr. Garner - No surgical intervention; repeat CT in 2 months - Acid fast Bacilli x3 Negative - Blood culture: Negative - Sputum Culture: Negative - Urine Culture: Negative - Legionella, Mycoplasm, Influenza: Negative - HIV negative - Hepatitis Panel: Negative - Quantiferon Gold: Negative - PPD 07/01: Negative Medications: * Vancomycin 1g q12h discontinued 07/03/17 * vanco troph before 4th dose (06/30):< 5.0 * f/u vano troph 07/03/17 at 8:30AM * Azythromycin 500mg q24h - discontinued * Zosyn 3.375g q6h discontinued 07/03/17 * Tigecycline 100mg 07/03 followed by Tigecycline 50mg q12 * Acetaminophen 650mg PO Q6h prn for fever * Florastor 250mg PO BID * Guaifenesin 100mg q4H PRN for cough - Patient removed from isolation 07/01/17 2.) Thrombocytosis - Possibly secondary to Acute Phase Reaction due to left upper lobe pneumonia - Continue to Monitor 3.) Rash possibly secondary to antibiotics vancomycin vs. zosyn - Benadryl 25mg one time dose - discontinued Vancomycin and Zosyn 4.) Prophylaxis Heparin SC - Pepcid 20mg PO daily - SCDs Case discussed with Dr. Anson Hutson PGY-1 <Davis Griggs - Last Filed: 07/03/17 19:33> Objective - Vital Signs/Intake and Output Vital Signs (last 24 hours): Temp Pulse Resp BP Pulse Ox 98.1 F 80 20 130/67 98 07/03/17 16:00 07/03/17 16:00 07/03/17 16:00 07/03/17 16:00 07/03/17 16:00 Intake and Output: 07/03/17 07/04/17 18:59 06:59 Intake Total 390 Balance 390 - Medications Medications: Current Medications Acetaminophen (Tylenol 325mg Tab) 650 mg PO Q6 PRN PRN Reason: Fever >100.4 F Famotidine (Pepcid) 20 mg PO DAILY [facility] Last Admin: 07/03/17 09:14 Dose: 20 mg Guaifenesin (Robitussin) 100 mg PO Q4H PRN PRN Reason: Cough Heparin Sodium (Porcine) (Heparin) 5,000 units SC Q8 [facility] Last Admin: 07/03/17 14:22 Dose: 5,000 units Tigecycline 50 mg/ Sodium (Chloride) 100 mls @ 100 mls/hr IVPB Q12H [facility] Saccharomyces Boulardii (Florastor) 250 mg PO BID [facility] Last Admin: 07/03/17 17:00 Dose: 250 mg - Labs Labs: 07/03/17 07:31 07/03/17 07:31 Attending/Attestation - Attestation I have personally seen and examined this patient.: Yes I have fully participated in the care of the patient.: Yes I have reviewed all pertinent clinical information, including history, physical exam and plan: Yes Notes (Text): 07/03/17 19:28 Patient was seen and examined at shortly after resident 07/03/17. Exam, Assessment and Plan were thoroughly gone over with the Resident. HEENT, Cardio, Resp, GI, Ext, Nuero exams were unremarkable. Skin Exam indicated macular rash on the back and upper chest area. Assessments: 1). Left Lung Pneumonia/Abscess PPD 07/01/17 Right Anterior Forearm is NEGATIVE and Quanteferon Gold is NEGATIVE : D/C'd respiratory isolation Initial Mycobacterium Cultures 06/28/17,06/29/17, 06/30/17 do NOT show AFB Sputum Culture 06/29/17 shows normal martha Blood Culture 06/27/17 is NGTD Urine Culture 06/27/17 shows NO Growth HIV Negative Hepatitis Panel Negative Influenza, Urine Legionella, Mycoplasma are all Negative Echocardiogram 07/02/17 did NOT show any abnormality of Tricuspid valve. NO thrombus noted. Zosyn, Vancomycin, Azithromycin were discontinued secondary to the rash and Tigecycline 50 gm IV Q12H was started 07/03/[address] with contrast on 07/06/[address] Haque Cardiothoracic Surgery Dr. Garner: NO surgical intervention and recommend repeat CT Chest Pulmonology Dr. Jackson: awaiting recommendations Davis Griggs D.O.
[2017-07-03] MEDS ORDERED: Moxifloxacin IV 400mg/250ml NS 400 MG/250 ML BAG IVPB SCH (19:00)
[2017-07-04 08:03] LABS: BASO # 0.1 K/uL (0.0-0.2); BASO % 0.7 % (0.0-2.0); EOS # 0.3 K/uL (0.0-0.7); EOS % 3.7 % (0.0-4.0); HEMATOCRIT 45.8 % (35.0-51.0); LYMPH # 2.2 K/uL (1.0-4.3); LYMPH % 24.6 % (20.0-40.0); MEAN CORPUSCULAR HEMOGLOBIN 31.4 pg (27.0-31.0); MEAN CORPUSCULAR HGB CONC 34.1 g/dL (33.0-37.0); MEAN PLATELET VOLUME 7.2 fL (7.2-11.7); MONO # 0.6 K/uL (0.0-0.8); MONO % 6.5 % (0.0-10.0); WHITE BLOOD COUNT 8.9 K/uL (4.8-10.8)
[2017-07-04 08:24] LABS: ALB/GLOB RATIO 1.1 (1.0-2.1); ALKALINE PHOSPHATASE 121 U/L (38-126); ALT/SGPT 84 U/L (21-72); AST/SGOT 28 U/L (17-59); BILIRUBIN,TOTAL 0.5 mg/dL (0.2-1.3); BLOOD UREA NITROGEN 16 mg/dL (9-20); CALCIUM 8.5 mg/dl (8.6-10.4); CARBON DIOXIDE 28 mmol/L (22-30); CHLORIDE 103 mmol/L (98-107); GFR AFRICAN-AMERICAN > 60; GLUCOSE,RANDOM 94 mg/dL (75-110); MAGNESIUM 2.1 mg/dL (1.6-2.3); PHOSPHOROUS 3.5 mg/dL (2.5-4.5); POTASSIUM 4.2 mmol/L (3.6-5.2); SODIUM 139 mmol/L (132-148); TOTAL PROTEIN 6.9 g/dL (6.3-8.3)
--- NOTE | 2017-07-04 09:17 | CP.PCM.PN ---
Subjective - Date & Time of Evaluation Date of Evaluation: 07/04/17 Time of Evaluation: 09:00 - Subjective Subjective: Patient was seen and examined at 9:00 AM 07/04/17. 36 year old male who was admitted for treatment of Left Upper Lung Abscess. Please see below for full details. Currently upon FULL ROS: NO chest pain Cough much improved and occasionally productive but nonbloody NO abdominal pain NO n/v/d/c NO burning/pain withe urination NO headache NO edema NO itching on back or chest today NO other complaints upon FULL ROS Exam: General: AAOx3, NAD HEENT: NCA, EOMI, PERRLA, NO Pharyngeal erythema/exudate, NO cervical lymphadenopathy, NO thyromegaly, Moist Mucous Membraines Cardio: NS1 and NS2, NO M/R/G Resp: CTA B/L, NO R/R/W GI: BSx4, Soft, NT, ND, NO HSM, NO guarding/rebound tenderness Ext: NO edema, Pulses are strong and equal, Capillary Refill is 2 seconds Neuro: CN II Through XII are grossly intact Skin Exam indicated macular rash on the back and upper chest area that is now more pinpoint and improved compared to 07/03/17 Assessments: 1). Left Lung Pneumonia/Abscess PPD 07/01/17 Right Anterior Forearm is NEGATIVE and Quanteferon Gold is NEGATIVE : D/C'd respiratory isolation Initial Mycobacterium Cultures 06/28/17,06/29/17, 06/30/17 do NOT show AFB Sputum Culture 06/29/17 shows normal martha Blood Culture 06/27/17 is NGTD Urine Culture 06/27/17 shows NO Growth HIV Negative Hepatitis Panel Negative Influenza, Urine Legionella, Mycoplasma are all Negative Echocardiogram 07/02/17 did NOT show any abnormality of Tricuspid valve. NO thrombus noted. Zosyn, Vancomycin, Azithromycin were discontinued 07/03/17 secondary to the rash and Tigecycline 50 gm IV Q12H was started 07/03/[address] with contrast on 07/06/[address] Haque Cardiothoracic Surgery Dr. Garner: NO surgical intervention and recommend repeat CT Chest Pulmonology Dr. Jackson: awaiting recommendations 2). Prophylaxis: Heparing 5,000 Units SC Q8H and SCDs Florastor 250 mg PO 2x/day Davis Griggs D.O. Objective - Vital Signs/Intake and Output Vital Signs (last 24 hours): Temp Pulse Resp BP Pulse Ox 97.7 F 68 20 107/71 97 07/04/17 07:31 07/04/17 07:31 07/04/17 07:31 07/04/17 07:31 07/04/17 07:31 Intake and Output: 07/04/17 07/04/17 06:59 18:59 Intake Total 820 Balance 820 - Medications Medications: Current Medications Acetaminophen (Tylenol 325mg Tab) 650 mg PO Q6 PRN PRN Reason: Fever >100.4 F Famotidine (Pepcid) 20 mg PO DAILY [facility] Last Admin: 07/03/17 09:14 Dose: 20 mg Guaifenesin (Robitussin) 100 mg PO Q4H PRN PRN Reason: Cough Heparin Sodium (Porcine) (Heparin) 5,000 units SC Q8 [facility] Last Admin: 07/04/17 05:44 Dose: Not Given Tigecycline 50 mg/ Sodium (Chloride) 100 mls @ 100 mls/hr IVPB Q12H [facility] Last Admin: 07/04/17 05:45 Dose: 100 mls/hr Saccharomyces Boulardii (Florastor) 250 mg PO BID [facility] Last Admin: 07/03/17 17:00 Dose: 250 mg - Labs Labs: 07/04/17 07:50 07/04/17 07:50
[2017-07-04] MEDS: Saccharomyces Boulardi 250 mg Cap PO SCH ×2 (09:32→17:35)
--- NOTE | 2017-07-04 20:52 | CP.PCM.PN ---
Subjective - Date & Time of Evaluation Date of Evaluation: 07/04/17 Time of Evaluation: 04:00 - Subjective Subjective: dictated Objective - Vital Signs/Intake and Output Vital Signs (last 24 hours): Temp Pulse Resp BP Pulse Ox 98.6 F 86 18 114/75 96 07/04/17 16:00 07/04/17 16:00 07/04/17 16:00 07/04/17 16:00 07/04/17 16:00 - Medications Medications: Current Medications Acetaminophen (Tylenol 325mg Tab) 650 mg PO Q6 PRN PRN Reason: Fever >100.4 F Famotidine (Pepcid) 20 mg PO DAILY [facility] Last Admin: 07/04/17 09:32 Dose: 20 mg Guaifenesin (Robitussin) 100 mg PO Q4H PRN PRN Reason: Cough Heparin Sodium (Porcine) (Heparin) 5,000 units SC Q8 [facility] Last Admin: 07/04/17 14:27 Dose: 5,000 units Tigecycline 50 mg/ Sodium (Chloride) 100 mls @ 100 mls/hr IVPB Q12H [facility] Last Admin: 07/04/17 17:35 Dose: 100 mls/hr Saccharomyces Boulardii (Florastor) 250 mg PO BID [facility] Last Admin: 07/04/17 17:35 Dose: 250 mg - Labs Labs: 07/04/17 07:50 07/04/17 07:50
--- NOTE | 2017-07-05 00:52 | PN ---
DATE: SUBJECTIVE: Tha Thomas is having a lot of maculopapular rash. He is in bed; however, he is feeling better. He states that he wants to go home. We have changed the antibiotics to Tygacil as that Avelox is just available p.o. and at this time, I would like to have another CAT scan to see what is going on in the lungs and what is to be done on Thursday and for now he is on Tygacil and labs are noted. Labs are unremarkable and we will repeat CAT scan on Thursday and see if what needs to be done after that and will follow. Hang Haque MD
[2017-07-05 07:42] LABS: BASO # 0.1 K/uL (0.0-0.2); BASO % 0.6 % (0.0-2.0); EOS # 0.2 K/uL (0.0-0.7); EOS % 1.9 % (0.0-4.0); HEMATOCRIT 47.6 % (35.0-51.0); LYMPH # 2.5 K/uL (1.0-4.3); LYMPH % 22.6 % (20.0-40.0); MEAN CELL VOLUME 91.4 fL (80.0-94.0); MEAN CORPUSCULAR HGB CONC 33.9 g/dL (33.0-37.0); MEAN PLATELET VOLUME 7.4 fL (7.2-11.7); MONO # 0.6 K/uL (0.0-0.8); MONO % 5.7 % (0.0-10.0); RED CELL DISTRIBUTION WIDTH 13.1 % (11.5-14.5)
[2017-07-05 08:06] LABS: ALB/GLOB RATIO 0.9 (1.0-2.1); ALKALINE PHOSPHATASE 123 U/L (38-126); ALT/SGPT 79 U/L (21-72); AST/SGOT 24 U/L (17-59); BILIRUBIN,TOTAL 0.3 mg/dL (0.2-1.3); BLOOD UREA NITROGEN 19 mg/dL (9-20); CALCIUM 8.8 mg/dl (8.6-10.4); CARBON DIOXIDE 28 mmol/L (22-30); CHLORIDE 101 mmol/L (98-107); GFR AFRICAN-AMERICAN > 60; GLUCOSE,RANDOM 91 mg/dL (75-110); PHOSPHOROUS 4.3 mg/dL (2.5-4.5); POTASSIUM 4.1 mmol/L (3.6-5.2); SODIUM 137 mmol/L (132-148); TOTAL PROTEIN 8.1 g/dL (6.3-8.3)
[2017-07-05] MEDS: Saccharomyces Boulardi 250 mg Cap PO SCH ×2 (09:47→17:31)
--- NOTE | 2017-07-05 11:32 | CP.PCM.PN ---
<Jose AlejandroromariophilipEmiliana - Last Filed: 07/05/17 11:33> Subjective - Date & Time of Evaluation Date of Evaluation: 07/05/17 Time of Evaluation: 11:26 - Subjective Subjective: Medicine Progress Note Patient seen and examined. Patient has no acute complaints today. Patient is eager to go home. He understands that further testing must be done to evaluate his lung abscess. Denies chest pain, shortness of breath, headache. Patient was encouraged to get out of bed. Objective - Vital Signs/Intake and Output Vital Signs (last 24 hours): Temp Pulse Resp BP Pulse Ox 98.1 F 78 20 114/75 98 07/05/17 09:18 07/05/17 09:18 07/05/17 09:18 07/05/17 09:18 07/05/17 09:18 - Medications Medications: Current Medications Acetaminophen (Tylenol 325mg Tab) 650 mg PO Q6 PRN PRN Reason: Fever >100.4 F Famotidine (Pepcid) 20 mg PO DAILY [facility] Last Admin: 07/05/17 09:47 Dose: 20 mg Guaifenesin (Robitussin) 100 mg PO Q4H PRN PRN Reason: Cough Last Admin: 07/05/17 09:47 Dose: 100 mg Heparin Sodium (Porcine) (Heparin) 5,000 units SC Q8 [facility] Last Admin: 07/05/17 05:38 Dose: 5,000 units Tigecycline 50 mg/ Sodium (Chloride) 100 mls @ 100 mls/hr IVPB Q12H [facility] Last Admin: 07/05/17 05:37 Dose: 100 mls/hr Saccharomyces Boulardii (Florastor) 250 mg PO BID [facility] Last Admin: 07/05/17 09:47 Dose: 250 mg - Labs Labs: 07/05/17 07:22 07/05/17 07:22 - Constitutional Appears: Non-toxic, No Acute Distress - Head Exam Head Exam: ATRAUMATIC, NORMOCEPHALIC - Eye Exam Eye Exam: EOMI, Normal appearance Pupil Exam: NORMAL ACCOMODATION - ENT Exam ENT Exam: Mucous Membranes Moist, Normal Exam - Neck Exam Neck Exam: Normal Inspection - Respiratory Exam Respiratory Exam: Clear to Ausculation Bilateral, NORMAL BREATHING PATTERN. absent: Accessory Muscle Use, Decreased Breath Sounds, Rhonchi, Wheezes, Respiratory Distress - Cardiovascular Exam Cardiovascular Exam: REGULAR RHYTHM, +S1, +S2. absent: Irregular Rhythm - GI/Abdominal Exam GI & Abdominal Exam: Soft, Normal Bowel Sounds - Extremities Exam Extremities Exam: Normal Inspection. absent: Pedal Edema - Back Exam Back Exam: NORMAL INSPECTION - Neurological Exam Neurological Exam: Alert, Awake, Oriented x3 - Psychiatric Exam Psychiatric exam: Normal Affect, Normal Mood - Skin Skin Exam: Dry, Intact, Warm Assessment and Plan - Assessment and Plan (Free Text) Assessment: Left upper lobe Pneumonia with a Central Abscess - Plan for repeat Chest CT on 07/06 to re-evaluate abscess - Continue IV Tigecycline 50mg q12h (started on 07/04) - ID Consult: Dr. Haque --> help appreciated - Chest x-ray: Left upper lobe infiltrate consistent with pneumonia; Minor bibasilar atelectasis - Chest CT: Mass like consolidation left upper lobe with the small central a elliptical shaped area of low attenuation and at tiny bubble of air consistent with pneumonia and at central abscess formation; Follow-up CT scan following treatment to assess resolution and exclude underlying mass with central necrosis. - Repeat Chest CT in 6-8 weeks - Patient will need weekly Chest X-ray - ECHO: EF 61.4%; Normal LV systolic function; normal doppler Cardio/Thoracic Consult: Dr. Garner - No surgical intervention; repeat CT recommended - Acid fast Bacilli x3 Negative - Blood culture: Negative - Sputum Culture: Negative - Urine Culture: Negative - Legionella, Mycoplasm, Influenza: Negative - HIV negative - Hepatitis Panel: Negative - Quantiferon Gold: Negative - PPD 07/01: Negative Medications: * Vancomycin 1g q12h discontinued 07/03/17 * Azythromycin 500mg q24h - discontinued * Zosyn 3.375g q6h discontinued 07/03/17 * Tigecycline 100mg started on 07/03 followed by Tigecycline 50mg q12 * Acetaminophen 650mg PO Q6h prn for fever * Florastor 250mg PO BID * Guaifenesin 100mg q4H PRN for cough - Patient removed from isolation 07/01/17 Thrombocytosis - Possibly secondary to Acute Phase Reaction due to left upper lobe pneumonia - Continue to Monitor Rash - Improving - possibly secondary to antibiotics vancomycin vs. zosyn - discontinued Vancomycin and Zosyn and switched to Tigecycline per Dr Shabnam' s recommendations - Will continue to monitor for allergic reactions Prophylaxis - Heparin SC q8h - Pepcid 20mg PO daily - SCDs <Davis Griggs - Last Filed: 07/05/17 14:28> Objective - Vital Signs/Intake and Output Vital Signs (last 24 hours): Temp Pulse Resp BP Pulse Ox 98.1 F 78 20 114/75 98 07/05/17 09:18 07/05/17 09:18 07/05/17 09:18 07/05/17 09:18 07/05/17 09:18 - Medications Medications: Current Medications Acetaminophen (Tylenol 325mg Tab) 650 mg PO Q6 PRN PRN Reason: Fever >100.4 F Famotidine (Pepcid) 20 mg PO DAILY [facility] Last Admin: 07/05/17 09:47 Dose: 20 mg Guaifenesin (Robitussin) 100 mg PO Q4H PRN PRN Reason: Cough Last Admin: 07/05/17 09:47 Dose: 100 mg Heparin Sodium (Porcine) (Heparin) 5,000 units SC Q8 [facility] Last Admin: 07/05/17 13:52 Dose: 5,000 units Tigecycline 50 mg/ Sodium (Chloride) 100 mls @ 100 mls/hr IVPB Q12H [facility] Last Admin: 07/05/17 05:37 Dose: 100 mls/hr Saccharomyces Boulardii (Florastor) 250 mg PO BID [facility] Last Admin: 07/05/17 09:47 Dose: 250 mg - Labs Labs: 07/05/17 07:22 07/05/17 07:22 Attending/Attestation - Attestation I have personally seen and examined this patient.: Yes I have fully participated in the care of the patient.: Yes I have reviewed all pertinent clinical information, including history, physical exam and plan: Yes Notes (Text): 07/05/17 14:25 Patient was seen and examined at 2:15 PM 07/05/17 554. 36 year old male who was admitted for treatment of Left Upper Lung Abscess. Please see below for full details. Currently upon FULL ROS: NO chest pain Cough much improved and occasionally productive but nonbloody NO abdominal pain NO n/v/d/c NO burning/pain withe urination NO headache NO edema NO itching on back or chest NO other complaints upon FULL ROS Exam: General: AAOx3, NAD HEENT: NCA, EOMI, PERRLA, NO Pharyngeal erythema/exudate, NO cervical lymphadenopathy, NO thyromegaly, Moist Mucous Membraines Cardio: NS1 and NS2, NO M/R/G Resp: CTA B/L, NO R/R/W GI: BSx4, Soft, NT, ND, NO HSM, NO guarding/rebound tenderness Ext: NO edema, Pulses are strong and equal, Capillary Refill is 2 seconds Neuro: CN II Through XII are grossly intact Skin Exam: macular rash on chest and back is no longer present Assessments: 1). Left Lung Pneumonia/Abscess PPD 07/01/17 Right Anterior Forearm is NEGATIVE and Quanteferon Gold is NEGATIVE : D/C'd respiratory isolation Initial Mycobacterium Cultures 06/28/17,06/29/17, 06/30/17 do NOT show AFB Sputum Culture 06/29/17 shows normal martha Blood Culture 06/27/17 is NGTD Urine Culture 06/27/17 shows NO Growth HIV Negative Hepatitis Panel Negative Influenza, Urine Legionella, Mycoplasma are all Negative Echocardiogram 07/02/17 did NOT show any abnormality of Tricuspid valve. NO thrombus noted. Zosyn, Vancomycin, Azithromycin were discontinued 07/03/17 secondary to the rash and Tigecycline 50 gm IV Q12H was started 07/03/[address] with contrast on 07/06/[address] Haque Cardiothoracic Surgery Dr. Garner: NO surgical intervention and recommend repeat CT Chest Pulmonology Dr. Jackson: awaiting recommendations 2). Prophylaxis: Heparing 5,000 Units SC Q8H and SCDs Florastor 250 mg PO 2x/day Davis Griggs D.O.
[2017-07-05 23:56] VITALS: O2SAT 97
--- NOTE | 2017-07-06 06:59 | CP.PCM.PN ---
Subjective - Date & Time of Evaluation Date of Evaluation: 07/06/17 Time of Evaluation: 06:59 Objective - Vital Signs/Intake and Output Vital Signs (last 24 hours): Temp Pulse Resp BP Pulse Ox 98.1 F 73 20 114/72 97 07/05/17 23:00 07/05/17 23:00 07/05/17 23:00 07/05/17 23:00 07/05/17 23:00 Intake and Output: 07/05/17 07/06/17 18:59 06:59 Intake Total 300 100 Balance 300 100 - Medications Medications: Current Medications Acetaminophen (Tylenol 325mg Tab) 650 mg PO Q6 PRN PRN Reason: Fever >100.4 F Famotidine (Pepcid) 20 mg PO DAILY [facility] Last Admin: 07/05/17 09:47 Dose: 20 mg Guaifenesin (Robitussin) 100 mg PO Q4H PRN PRN Reason: Cough Last Admin: 07/05/17 09:47 Dose: 100 mg Heparin Sodium (Porcine) (Heparin) 5,000 units SC Q8 [facility] Last Admin: 07/06/17 06:26 Dose: 5,000 units Tigecycline 50 mg/ Sodium (Chloride) 100 mls @ 100 mls/hr IVPB Q12H [facility] Last Admin: 07/06/17 06:26 Dose: 100 mls/hr Saccharomyces Boulardii (Florastor) 250 mg PO BID [facility] Last Admin: 07/05/17 17:31 Dose: 250 mg - Labs Labs: 07/05/17 07:22 07/05/17 07:22 Assessment and Plan (1) Fever Status: Acute (2) Cough Status: Acute (3) Prophylactic measure Status: Acute
--- NOTE | 2017-07-06 07:29 | CON ---
DATE: HISTORY OF PRESENT ILLNESS: This is a 36-year-old male immigrate from [facility], chief complaint of chills, weakness and fatigue. weight loss on admission. The patient came to the ER and was found to have pneumonia on admission. The patient denies use of drugs. No smoking. PHYSICAL EXAMINATION GENERAL: The patient is awake, alert, oriented. VITAL SIGNS: Temperature 99 and pulse is 98. HEENT: Within normal limits. NECK: Supple. CHEST: Symmetrical with diffuse air entry. HEART: Regular. ABDOMEN: Soft. EXTREMITIES: No edema. LABORATORY DATA: Chest x-ray and CT, evidence of left upper lobe infiltrate. ASSESSMENT AND PLAN: The patient has negative AFB. The patient consistent with pneumonia. Good response to antibiotics. The patient can be discharged on p.o. antibiotics. Follow up chest x-ray as an outpatient. Ayesha Jackson MD
[2017-07-06 07:48] LABS: BASO # 0.1 K/uL (0.0-0.2); BASO % 0.7 % (0.0-2.0); EOS # 0.2 K/uL (0.0-0.7); EOS % 2.6 % (0.0-4.0); HEMATOCRIT 47.9 % (35.0-51.0); LYMPH # 2.2 K/uL (1.0-4.3); LYMPH % 25.3 % (20.0-40.0); MEAN CELL VOLUME 91.6 fL (80.0-94.0); MEAN CORPUSCULAR HEMOGLOBIN 31.4 pg (27.0-31.0); MEAN CORPUSCULAR HGB CONC 34.3 g/dL (33.0-37.0); MEAN PLATELET VOLUME 7.4 fL (7.2-11.7); MONO # 0.6 K/uL (0.0-0.8); MONO % 6.7 % (0.0-10.0); NRBC % 0.1 % (0.0-2.0); RED CELL DISTRIBUTION WIDTH 12.7 % (11.5-14.5); WHITE BLOOD COUNT 8.9 K/uL (4.8-10.8)
[2017-07-06 08:33] LABS: ALB/GLOB RATIO 1.2 (1.0-2.1); ALKALINE PHOSPHATASE 102 U/L (38-126); ALT/SGPT 60 U/L (21-72); AST/SGOT 23 U/L (17-59); BILIRUBIN,TOTAL 0.4 mg/dL (0.2-1.3); BLOOD UREA NITROGEN 13 mg/dL (9-20); CALCIUM 8.6 mg/dl (8.6-10.4); CARBON DIOXIDE 30 mmol/L (22-30); CHLORIDE 100 mmol/L (98-107); GFR AFRICAN-AMERICAN > 60; GLUCOSE,RANDOM 88 mg/dL (75-110); MAGNESIUM 1.9 mg/dL (1.6-2.3); PHOSPHOROUS 3.7 mg/dL (2.5-4.5); POTASSIUM 4.6 mmol/L (3.6-5.2); SODIUM 139 mmol/L (132-148); TOTAL PROTEIN 6.8 g/dL (6.3-8.3)
[2017-07-06] MEDS: Saccharomyces Boulardi 250 mg Cap PO SCH (09:48)
[2017-07-06] MEDS ORDERED: Iodixanol 320 MG/ML 100 ML BOTTLE IV ONE (10:37)
[2017-07-06] MEDS ORDERED: MethylPREDNISolone 40 mg Vial IVP ONE (11:38)
[2017-07-06] MEDS ORDERED: DiphenhydrAMINE 50 mg/ml Inj IVP ONE (12:00)
--- NOTE | 2017-07-06 13:21 | CT ---
CT chest with IV contrast Indication: Left lung abscess. Any improvement? Technique: Contiguous axial images were obtained through the chest with intravenous contrast enhancement. Sagittal and coronal reconstructions were generated and reviewed. This CT exam was performed using 1 or more of the falling dose reduction techniques: Automated exposure control, adjustment of the MAA and/or kV according to patient size, and/or use of iterative reconstruction technique. IV Contrast: 100 mL Visipaque Radiation dose (DLP): 539.50 MGy-cm. Comparison: CT chest with contrast performed 06/27/17 Findings: Visualized portions of the inferior thyroid gland appear unremarkable. The mediastinal and hilar vascular structures appear within normal limits. The heart appears within normal limits of size. Sub cm prevascular lymph node, nonspecific. Persistent heterogeneous consolidation within the left upper lobe, stable in size. Tiny bubble of air previously demonstrated is not appreciated on the current study. No pleural effusion. No pneumothorax. Limited visualization of the upper abdomen appears grossly unremarkable. No acute osseous abnormality is detected. Impression: Persistent stable appearing heterogeneous consolidation within the left upper lobe. Follow-up CT following treatment recommended to exclude underlying malignant neoplasm with central necrosis.
[2017-07-06 14:07] VITALS: BP 112/71; PULSE 64; RESP 19; TEMP 97.9
--- NOTE | 2017-07-06 14:14 | CP.PCM.DIS ---
<Lucía Washington - Last Filed: 07/06/17 15:31> Provider - Provider Date of Admission: 06/27/17 20:29 Attending physician: Davis Griggs MD Primary care physician: [facility] Consults: ID: Dr. Haque Pulmonolgy: Dr. Jackson Time Spent in preparation of Discharge (in minutes): 45 Diagnosis - Discharge Diagnosis (1) Pneumonia Status: Acute (2) Fever Status: Resolved (3) Cough Status: Resolved (4) Rash Status: Resolved Hospital Course - Lab Results Lab Results: Micro Results 06/27/17 17:45 Blood Blood Culture - Final NO GROWTH AFTER 5 DAYS 06/27/17 17:45 Blood Gram Stain - Final TEST NOT PERFORMED 06/27/17 18:15 Blood Blood Culture - Final NO GROWTH AFTER 5 DAYS 06/27/17 18:15 Blood Gram Stain - Final TEST NOT PERFORMED 07/01/17 15:15 Other: Please Indicate Mycobacterial Culture - Preliminary 06/30/17 11:45 Other: Please Indicate Mycobacterial Culture - Preliminary 06/29/17 06:36 Sputum Gram Stain - Final 06/29/17 06:36 Sputum Sputum Culture - Final NORMAL ORAL AINSLEY 06/29/17 10:04 Other: Please Indicate Mycobacterial Culture - Preliminary 06/28/17 07:25 Other: Please Indicate Mycobacterial Culture - Preliminary 06/27/17 17:59 Urine Urine Culture - Final No Growth (<1,000 CFU/ML) Most Recent Lab Values WBC 8.9 K/uL (4.8-10.8) 07/06/17 07:35 RBC 5.23 Mil/uL (4.40-5.90) 07/06/17 07:35 Hgb 16.4 g/dL (12.0-18.0) 07/06/17 07:35 Hct 47.9 % (35.0-51.0) 07/06/17 07:35 MCV 91.6 fL (80.0-94.0) 07/06/17 07:35 MCH 31.4 pg (27.0-31.0) H 07/06/17 07:35 MCHC 34.3 g/dL (33.0-37.0) 07/06/17 07:35 RDW 12.7 % (11.5-14.5) 07/06/17 07:35 Plt Count 518 K/uL (130-400) H 07/06/17 07:35 MPV 7.4 fL (7.2-11.7) 07/06/17 07:35 Neut % (Auto) 64.7 % (50.0-75.0) 07/06/17 07:35 Lymph % (Auto) 25.3 % (20.0-40.0) 07/06/17 07:35 [place] % (Auto) 6.7 % (0.0-10.0) 07/06/17 07:35 Eos % (Auto) 2.6 % (0.0-4.0) 07/06/17 07:35 Baso % (Auto) 0.7 % (0.0-2.0) 07/06/17 07:35 Neut # 5.7 K/uL (1.8-7.0) 07/06/17 07:35 Lymph # 2.2 K/uL (1.0-4.3) 07/06/17 07:35 [place] # 0.6 K/uL (0.0-0.8) 07/06/17 07:35 Eos # 0.2 K/uL (0.0-0.7) 07/06/17 07:35 Baso # 0.1 K/uL (0.0-0.2) 07/06/17 07:35 ESR 60 mm/hr (0-15) H 06/30/17 07:18 pO2 30 mm/Hg (30-55) 06/27/17 18:45 VBG pH 7.39 (7.32-7.43) 06/27/17 18:45 VBG pCO2 46 mmHg (40-60) 06/27/17 18:45 VBG HCO3 25.5 mmol/L 06/27/17 18:45 VBG Total CO2 29.2 mmol/L (22-28) H 06/27/17 18:45 VBG O2 Sat (Calc) 69.2 % (40-65) H 06/27/17 18:45 VBG Base Excess 2.2 mmol/L (0.0-2.0) H 06/27/17 18:45 VBG Potassium 3.7 mmol/L (3.6-5.2) 06/27/17 18:45 Sodium 138.0 mmol/l (132-148) 06/27/17 18:45 Chloride 104.0 mmol/L (98-107) 06/27/17 18:45 Glucose 102 mg/dl (75-110) 06/27/17 18:45 Lactate 1.3 mmol/L (0.7-2.1) 06/27/17 18:45 Sodium 139 mmol/L (132-148) 07/06/17 07:35 Potassium 4.6 mmol/L (3.6-5.2) 07/06/17 07:35 Chloride 100 mmol/L (98-107) 07/06/17 07:35 Carbon Dioxide 30 mmol/L (22-30) 07/06/17 07:35 Anion Gap 14 (10-20) 07/06/17 07:35 BUN 13 mg/dL (9-20) 07/06/17 07:35 Creatinine 0.9 mg/dL (0.8-1.5) 07/06/17 07:35 Est GFR ( Amer) > 60 07/06/17 07:35 Est GFR (Non-Af Amer) > 60 07/06/17 07:35 Random Glucose 88 mg/dL (75-110) 07/06/17 07:35 Calcium 8.6 mg/dl (8.6-10.4) 07/06/17 07:35 Phosphorus 3.7 mg/dL (2.5-4.5) 07/06/17 07:35 Magnesium 1.9 mg/dL (1.6-2.3) 07/06/17 07:35 Total Bilirubin 0.4 mg/dL (0.2-1.3) 07/06/17 07:35 AST 23 U/L (17-59) 07/06/17 07:35 ALT 60 U/L (21-72) 07/06/17 07:35 Alkaline Phosphatase 102 U/L (38-126) 07/06/17 07:35 C-React Prot High Sens < 15.00 mg/L (1.00-3.00) H 06/29/17 07:11 Total Protein 6.8 g/dL (6.3-8.3) 07/06/17 07:35 Albumin 3.7 g/dL (3.5-5.0) 07/06/17 07:35 Globulin 3.1 gm/dL (2.2-3.9) 07/06/17 07:35 Albumin/Globulin Ratio 1.2 (1.0-2.1) 07/06/17 07:35 Procalcitonin 0.08 NG/ML (0.19-0.49) L 06/27/17 21:23 Venous Blood Potassium 3.7 mmol/L (3.6-5.2) 06/27/17 18:45 Urine Color Yellow (YELLOW) 06/27/17 18:51 Urine Clarity Clear (Clear) 06/27/17 18:51 Urine pH 5.0 (5.0-8.0) 06/27/17 18:51 Ur Specific [place] 1.025 (1.003-1.030) 06/27/17 18:51 Urine Protein Negative mg/dL (NEGATIVE) 06/27/17 18:51 Urine Glucose (UA) Normal mg/dL (Normal) 06/27/17 18:51 Urine Ketones Negative mg/dL (NEGATIVE) 06/27/17 18:51 Urine Blood 2+ (NEGATIVE) H 06/27/17 18:51 Urine Nitrate Negative (NEGATIVE) 06/27/17 18:51 Urine Bilirubin Negative (NEGATIVE) 06/27/17 18:51 Urine Urobilinogen Normal mg/dL (0.2-1.0) 06/27/17 18:51 Ur Leukocyte Esterase Neg Mickey/uL (Negative) 06/27/17 18:51 Urine WBC (Auto) 1 /hpf (0-5) 06/27/17 18:51 Urine RBC (Auto) 10 /hpf (0-3) H 06/27/17 18:51 Vancomycin Trough 5.5 ug/mL (5.0-10.0) 07/03/17 11:26 Hepatitis A IgM Ab Negative (NEGATIVE) 06/30/17 07:18 Hep Bs Antigen Negative (NEGATIVE) 06/30/17 07:18 Hep B Core IgM Ab Negative (NEGATIVE) 06/30/17 07:18 Hepatitis C Antibody Negative (NEGATIVE) 06/30/17 07:18 HIV 1&2 Antibody Screen Negative (NEGATIVE) 06/27/17 21:49 Influenza Typ A,B (EIA) Negative for flu a/b (NEGATIVE) 06/27/17 18:50 Ur L.pneumophila Ag Negative (NEGATIVE) 06/28/17 18:42 Mycoplasma pneumon IgM Negative (NEGATIVE) 06/27/17 21:49 TB Test (QFT) Nil 0.08 IU/mL 06/28/17 07:00 TB Test Mitogen - Nil 4.72 IU/mL 06/28/17 07:00 TB Test TB - Nil <0.00 IU/mL 06/28/17 07:00 TB Test (QFT) Negative (Negative) 06/28/17 07:00 - Hospital Course Hospital Course: CC: "fever and back pain" HPI: 36 year old male with no past medical history presents to the ED with fever and thoracic back pain. Patient states the fever and pain comes and goes for the past 3 weeks. He has been taking different medications his friends give him from the pharmacy and it helps with the fever and pain but then it returns. He states the pain is aching and he also has body aches and fever for the past 3 weeks. He states the pain when it comes is at an 8/10. He also has been nauseated recently with what feels like a bad taste in his mouth. He also states he has been coughing a dry cough but this past week it has had some blood in his cough. He has also recently had decreased appetite as he is going through a divorce and has lost about 20 lbs in the past 4 months. He denies recent travel, sick contacts, diarrhea, constipation, vomiting or dysuria. States he has not left the country in many years but he does work with many different people from different parts of the world. Medical History: Denies Surgical History: Denies Medications: Denies Allergies: NKDA Family History: Denies Social History: Recent divorce within the last 4 months; works delivering furniture; denies any recent travel or sick contacts but states he works with people from all over the world/country. Denies smoking or illicit drug use. States he drink a beer once a week. Hospital Course: Patient was admitted on 06/27/17 for fever and back pain. In the ED, labs, chest xray, and chest CT were ordered. Chest xray showed left upper lobe infiltrate consistent with pneumonia; minor bibasilar atelectasis. Chest CT showed mass like consolidation left upper lobe with the small central a elliptical shaped area of low attenuation and at tiny bubble of air consistent with pneumonia and a central abscess formation; Follow-up CT scan following treatment to assess resolution and exclude underlying mass with central necrosis. Infectious disease, Dr. Haque, was consulted. Patient was worked up for tuberculosis- sputum culture, PPD, acid fast bacilli (times 3), and quantiferon gold were negative. Blood cultures, urine cultures, legionella, mycoplasma, and influenza were negative. HIV and hepatitis panel were negative. IV antibiotics, Vancomycin, Azythromycin, and Zosyn, were started. Patient was also started on nebulizer treatments. Cardiothoracic surgery, Dr. Garner, was consulted for surgical drainage of possible left lung abscess. No surgical intervention was recommended at that time. Patient developed thrombocytosis which was likely due to acute phase reaction secondary to left upper lobe pneumonia. Thrombocytosis was monitored throughout hospital stay. Echocardiogram was ordered to rule out endocarditis. Echocardiogram showed normal LV function, normal doppler. Patient was given guanifesan for productive cough, which subsequently improved. Patient then developed an itchy rash on chest, back and arms on 07/03/17. Vancomycin, azythromycin, and zosyn were discontinued. Patient was then started on Tigecycline. Patient was given solumedrol and benadryl. Repeat chest CT was ordered for 07/06/17 and showed no changes (persistent stable appearing heterogenous consolidation within left upper lobe; follow up CT following treatment recommended to exclude underlying malignant neoplasm with central necrosis). Today, patient was seen and examined at bedside in no acute distress. Patient reports feeling well and has no complaints. Patient denies having fevers, cough, headache, back pain, chest pain , and abdominal pain. Patient is stable for discharge to home. Patient must take oral antibiotics, Levaquin, for 10 days with a probiotic (acidophillus or yogurt with probiotics). Patient must follow up as outpatient with PMD at [facility]. A repeat chest CT in 6-8 weeks is recommended to evaluate left upper lobe consolidation. This is a brief summary of the hospital course. Please see EMR for more details. Discharge Exam - Head Exam Head Exam: ATRAUMATIC, NORMOCEPHALIC - Eye Exam Eye Exam: EOMI, Normal appearance - ENT Exam ENT Exam: Mucous Membranes Moist - Respiratory Exam Respiratory Exam: Clear to PA & Lateral, NORMAL BREATHING PATTERN, UNREMARKABLE. absent: Rales, Rhonchi, Wheezes, Respiratory Distress - Cardiovascular Exam Cardiovascular Exam: REGULAR RHYTHM, +S1, +S2 - GI/Abdominal Exam GI & Abdominal Exam: Normal Bowel Sounds, Soft, Unremarkable. absent: Distended , Guarding, Tenderness - Extremities Exam Extremities exam: normal inspection - Neurological Exam Neurological exam: Alert, Oriented x3 - Psychiatric Exam Psychiatric exam: Normal Affect, Normal Mood - Skin Skin Exam: Dry, Intact, Rash (Resolving- likely secondary to antibiotics), Warm Discharge Plan - Discharge Medications Prescriptions: Lactobacillus Acidophilus [Acidophilus] 1 each PO DAILY 10 Days #10 capsule Levofloxacin [Levaquin] 500 mg PO DAILY 10 Days #10 tablet - Follow Up Plan Condition: STABLE Disposition: HOME/ ROUTINE Instructions: Levofloxacin (By mouth), Probiotic (By mouth), Pneumonia (DC) Additional Instructions: Patient is stable for discharge to home. Patient must take new medications as prescribed: Levaquin 500mg PO daily: take 1 tablet by mouth daily for 10 days. Acidophillus 1 capsule PO daily: take 1 tablet by mouth daily for 10 days. Patient must follow up with PMD at [facility] on July 17, 2017 at 9am. Patient should follow up with elevator dispatcher, Dr. Jackson, within 1-2 weeks of discharge. If symptoms reoccur or worsen, patient should return to the ED. Referrals: Ayesha Jackson MD [Staff Provider] - [facility]urg [Non-Staff] - 07/17/17 9:00 am <Elisabeth Acevedo V - Last Filed: 07/06/17 19:04> Provider - Provider Date of Admission: 06/27/17 20:29 Attending physician: Davis Griggs MD Diagnosis - Discharge Diagnosis (1) Lung abscess Status: Acute (2) Abnormal chest xray Status: Acute (3) Fever Status: Resolved (4) Secondhand smoke exposure Status: Acute (5) At risk for tuberculosis Status: Acute (6) Prophylactic measure Status: Acute Hospital Course - Lab Results Lab Results: Micro Results 06/27/17 17:45 Blood Blood Culture - Final NO GROWTH AFTER 5 DAYS 06/27/17 17:45 Blood Gram Stain - Final TEST NOT PERFORMED 06/27/17 18:15 Blood Blood Culture - Final NO GROWTH AFTER 5 DAYS 06/27/17 18:15 Blood Gram Stain - Final TEST NOT PERFORMED 07/01/17 15:15 Other: Please Indicate Mycobacterial Culture - Preliminary 06/30/17 11:45 Other: Please Indicate Mycobacterial Culture - Preliminary 06/29/17 06:36 Sputum Gram Stain - Final 06/29/17 06:36 Sputum Sputum Culture - Final NORMAL ORAL AINSLEY 06/29/17 10:04 Other: Please Indicate Mycobacterial Culture - Preliminary 06/28/17 07:25 Other: Please Indicate Mycobacterial Culture - Preliminary 06/27/17 17:59 Urine Urine Culture - Final No Growth (<1,000 CFU/ML) Most Recent Lab Values WBC 8.9 K/uL (4.8-10.8) 07/06/17 07:35 RBC 5.23 Mil/uL (4.40-5.90) 07/06/17 07:35 Hgb 16.4 g/dL (12.0-18.0) 07/06/17 07:35 Hct 47.9 % (35.0-51.0) 07/06/17 07:35 MCV 91.6 fL (80.0-94.0) 07/06/17 07:35 MCH 31.4 pg (27.0-31.0) H 07/06/17 07:35 MCHC 34.3 g/dL (33.0-37.0) 07/06/17 07:35 RDW 12.7 % (11.5-14.5) 07/06/17 07:35 Plt Count 518 K/uL (130-400) H 07/06/17 07:35 MPV 7.4 fL (7.2-11.7) 07/06/17 07:35 Neut % (Auto) 64.7 % (50.0-75.0) 07/06/17 07:35 Lymph % (Auto) 25.3 % (20.0-40.0) 07/06/17 07:35 [place] % (Auto) 6.7 % (0.0-10.0) 07/06/17 07:35 Eos % (Auto) 2.6 % (0.0-4.0) 07/06/17 07:35 Baso % (Auto) 0.7 % (0.0-2.0) 07/06/17 07:35 Neut # 5.7 K/uL (1.8-7.0) 07/06/17 07:35 Lymph # 2.2 K/uL (1.0-4.3) 07/06/17 07:35 [place] # 0.6 K/uL (0.0-0.8) 07/06/17 07:35 Eos # 0.2 K/uL (0.0-0.7) 07/06/17 07:35 Baso # 0.1 K/uL (0.0-0.2) 07/06/17 07:35 ESR 60 mm/hr (0-15) H 06/30/17 07:18 pO2 30 mm/Hg (30-55) 06/27/17 18:45 VBG pH 7.39 (7.32-7.43) 06/27/17 18:45 VBG pCO2 46 mmHg (40-60) 06/27/17 18:45 VBG HCO3 25.5 mmol/L 06/27/17 18:45 VBG Total CO2 29.2 mmol/L (22-28) H 06/27/17 18:45 VBG O2 Sat (Calc) 69.2 % (40-65) H 06/27/17 18:45 VBG Base Excess 2.2 mmol/L (0.0-2.0) H 06/27/17 18:45 VBG Potassium 3.7 mmol/L (3.6-5.2) 06/27/17 18:45 Sodium 138.0 mmol/l (132-148) 06/27/17 18:45 Chloride 104.0 mmol/L (98-107) 06/27/17 18:45 Glucose 102 mg/dl (75-110) 06/27/17 18:45 Lactate 1.3 mmol/L (0.7-2.1) 06/27/17 18:45 Sodium 139 mmol/L (132-148) 07/06/17 07:35 Potassium 4.6 mmol/L (3.6-5.2) 07/06/17 07:35 Chloride 100 mmol/L (98-107) 07/06/17 07:35 Carbon Dioxide 30 mmol/L (22-30) 07/06/17 07:35 Anion Gap 14 (10-20) 07/06/17 07:35 BUN 13 mg/dL (9-20) 07/06/17 07:35 Creatinine 0.9 mg/dL (0.8-1.5) 07/06/17 07:35 Est GFR ( Amer) > 60 07/06/17 07:35 Est GFR (Non-Af Amer) > 60 07/06/17 07:35 Random Glucose 88 mg/dL (75-110) 07/06/17 07:35 Calcium 8.6 mg/dl (8.6-10.4) 07/06/17 07:35 Phosphorus 3.7 mg/dL (2.5-4.5) 07/06/17 07:35 Magnesium 1.9 mg/dL (1.6-2.3) 07/06/17 07:35 Total Bilirubin 0.4 mg/dL (0.2-1.3) 07/06/17 07:35 AST 23 U/L (17-59) 07/06/17 07:35 ALT 60 U/L (21-72) 07/06/17 07:35 Alkaline Phosphatase 102 U/L (38-126) 07/06/17 07:35 C-React Prot High Sens < 15.00 mg/L (1.00-3.00) H 06/29/17 07:11 Total Protein 6.8 g/dL (6.3-8.3) 07/06/17 07:35 Albumin 3.7 g/dL (3.5-5.0) 07/06/17 07:35 Globulin 3.1 gm/dL (2.2-3.9) 07/06/17 07:35 Albumin/Globulin Ratio 1.2 (1.0-2.1) 07/06/17 07:35 Procalcitonin 0.08 NG/ML (0.19-0.49) L 06/27/17 21:23 Venous Blood Potassium 3.7 mmol/L (3.6-5.2) 06/27/17 18:45 Urine Color Yellow (YELLOW) 06/27/17 18:51 Urine Clarity Clear (Clear) 06/27/17 18:51 Urine pH 5.0 (5.0-8.0) 06/27/17 18:51 Ur Specific [place] 1.025 (1.003-1.030) 06/27/17 18:51 Urine Protein Negative mg/dL (NEGATIVE) 06/27/17 18:51 Urine Glucose (UA) Normal mg/dL (Normal) 06/27/17 18:51 Urine Ketones Negative mg/dL (NEGATIVE) 06/27/17 18:51 Urine Blood 2+ (NEGATIVE) H 06/27/17 18:51 Urine Nitrate Negative (NEGATIVE) 06/27/17 18:51 Urine Bilirubin Negative (NEGATIVE) 06/27/17 18:51 Urine Urobilinogen Normal mg/dL (0.2-1.0) 06/27/17 18:51 Ur Leukocyte Esterase Neg Mickey/uL (Negative) 06/27/17 18:51 Urine WBC (Auto) 1 /hpf (0-5) 06/27/17 18:51 Urine RBC (Auto) 10 /hpf (0-3) H 06/27/17 18:51 Vancomycin Trough 5.5 ug/mL (5.0-10.0) 07/03/17 11:26 Hepatitis A IgM Ab Negative (NEGATIVE) 06/30/17 07:18 Hep Bs Antigen Negative (NEGATIVE) 06/30/17 07:18 Hep B Core IgM Ab Negative (NEGATIVE) 06/30/17 07:18 Hepatitis C Antibody Negative (NEGATIVE) 06/30/17 07:18 HIV 1&2 Antibody Screen Negative (NEGATIVE) 06/27/17 21:49 Influenza Typ A,B (EIA) Negative for flu a/b (NEGATIVE) 06/27/17 18:50 Ur L.pneumophila Ag Negative (NEGATIVE) 06/28/17 18:42 Mycoplasma pneumon IgM Negative (NEGATIVE) 06/27/17 21:49 TB Test (QFT) Nil 0.08 IU/mL 06/28/17 07:00 TB Test Mitogen - Nil 4.72 IU/mL 06/28/17 07:00 TB Test TB - Nil <0.00 IU/mL 06/28/17 07:00 TB Test (QFT) Negative (Negative) 06/28/17 07:00 Attending/Attestation - Attestation I have personally seen and examined this patient.: Yes I have fully participated in the care of the patient.: Yes I have reviewed all pertinent clinical information, including history, physical exam and plan: Yes Notes (Text): Patient seen, examined, and case discussed with day-time resident. Patient seen this morning. Patient denies fever, denies chills, denies cough, denies hemotypsis, has mild itching from drug induced rash, denies abdominal pain, denies constipation, denies diarrhea, and denies urinary complaints. Patient given dose of Benadryl IV X1, and Solumedrol 40mg IV X1; prior antibiotics were discontinued over the weekend, and switched over to Tigecycline. Since my last visit with the patient, patient's sputum cultures are negative AFB , HIV negative, and Quantaferon negative. Patient was taken off respiratory isolation. Appreciated recommendation from pulmonary. Recommended for follow-up PO antibiotics and follow-up chest xray Repeat CT Chest (07/06/17); persistent stable appearing heterogenous consolidation within left upper lobe. Follow-up CT following treatment recommended to exclude underlying malignant neoplasm with central necrosis. Resident spoke with ID, recommended for 10 day course of Levaquin upon discharge. Patient medically stable for discharge. Discharge order and discharge instructions discussed with day-time resident and patient at bedside. Patient given prescription through E-prescription for Levaquin for ten days. Patient recommended to follow-up in the [facility] upon discharge; recommended for pulm referral and recommended for follow-up CT chest to monitor left upper lobe infiltrate. This is a summary of patient's hospitalization. Please see EMR for further details. Assessment and Plan (1) Pneumonia Assessment & Plan: * CT Chest (06/28/17): mass like consolidation left upper love with small central a elliptical shaped area of low attentuation and a tiny bubble of air consistent with pneumonia and at central abscess formation. CT Scan following treatment to assess resolution and exclude underlying mass w central necrosis. * Repeat CT Chest (07/06/17); persistent stable appearing heterogenous consolidation within left upper lobe. Follow-up CT following treatment recommended to exclude underlying malignant neoplasm with central necrosis. * Pulmonary sales demonstrator (Dr. Jackson)-->eval appreciated * good response to antibiotic. * Recommend d/c on PO antibiotics * Follow-up Chest xray * Infectious Disease (Dr. Haque) on the case help appreciated * Azithromycin 500mg IV Q24H (active since 06/28/17-06/29/17) * Zosyn 3.375 IV Q6H (active since 06/28/17-07/03/17) * Vancomycin 1 gram IVPB 24 H (active since 06/27/17-06/29/17) * Tigecycline 50mg IVPBQ 12H (active since 07/04/17- on) * On d/c, ten day course of Levaquin. * Florastor 250mg PO BID-->switch to Bacid on d/c * Promethazine w codeine 5ml PO Q 4H * sputum cultures are negative AFB, HIV negative, and Quantaferon negative * off Respiration isolation Status: Acute (2) Abnormal chest xray Assessment & Plan: * CT Chest (06/28/17): mass like consolidation left upper love with small central a elliptical shaped area of low attentuation and a tiny bubble of air consistent with pneumonia and at central abscess formation. CT Scan following treatment to assess resolution and exclude underlying mass w central necrosis. * Repeat CT Chest (07/06/17); persistent stable appearing heterogenous consolidation within left upper lobe. Follow-up CT following treatment recommended to exclude underlying malignant neoplasm with central necrosis. Status: Acute (3) Fever-->resolved Assessment & Plan: * Afebrile since 06/28/17 * CT Chest (06/28/17): mass like consolidation left upper love with small central a elliptical shaped area of low attentuation and a tiny bubble of air consistent with pneumonia and at central abscess formation. CT Scan following treatment to assess resolution and exclude underlying mass w central necrosis. * Repeat CT Chest (07/06/17); persistent stable appearing heterogenous consolidation within left upper lobe. Follow-up CT following treatment recommended to exclude underlying malignant neoplasm with central necrosis. * HIV negative * Promethazine w codeine 5ml PO Q 4H PRN cough * Tylenol 650mg PO Q 6H PRN Fever (T>100.4F) * Blood culture (06/27): no growth after 5 days X2 * Urine Culture (06/27):no growth * Mycobacterial Culture (06/28;06/29;06/30;07/01): no acid fast bacilli seen X4 * procalcitonin: 0.08 * sputum cultures are negative AFB, HIV negative, and Quantaferon negative Status: Acute (4) Secondhand smoke exposure Assessment & Plan: * patient's apartment mate smokes; patient is exposed to it; discussed with patient that exposure will increase his risk for things like lung cancer Status: Chronic (5) At risk for tuberculosis-->resolved Assessment & Plan: * off Respiratory isolation * Mycobacterial Culture (06/28;06/29;06/30;07/01): no acid fast bacilli seen X4 * sputum cultures are negative AFB, HIV negative, and Quantaferon negative * Tobacco exposure * Patient has not be incarcerated * Patient has not been on immunosuppressant therapy * 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
[2017-07-06] MEDS ORDERED: Pneumococcal 23-Valent Vaccine IM ONE (14:55)
[2017-07-06] MEDS ORDERED: Influenza Vaccine 60 mcg/0.5 mL SYR (4YR UP) IM ONE (14:55)
== END 2017-07-06 16:19 | disposition home or self-care (01) | DRG 80 ==
LOC: C.ER 17:07 → C.9E 20:29 → C.5S 23:16
PROVIDERS: ADMIT Family Medicine; ATTEND Family Medicine
DX: J85.1 Abscess of lung with pneumonia (principal); J45.909 Unspecified asthma, uncomplicated; L27.0 Generalized skin eruption due to drugs and medicaments taken internally; Z77.22 Contact with and (suspected) exposure to environmental tobacco smoke (acute) (chronic); T36.3X5A Adverse effect of macrolides, initial encounter